=== PATIENT | female | born 1945 | race Two or more races ===

== ENCOUNTER 2016-12-29 15:32 | Inpatient (IN) | payer MEDICARE ==
[2016-12-29 17:08] LABS: Hematocrit 38 % (35-47); Hemoglobin 12.5 g/dl (12.0-16.0); Mean Corpuscular HGB Conc 33 g/dl (31-36); Mean Corpuscular Hemoglobin 27 pg (27-31); Mean Corpuscular Volume 80 fL (80-97); Mean Platelet Volume 10 um3 (7.4-10.4); Red Blood Count 4.72 10^6/ul (4.0-5.4); Red Cell Distribution Width 15 % (10.5-15); White Blood Count 9.4 10^3/ul (3.5-10.8)
[2016-12-29 17:24] LABS: Troponin I 0.01 ng/mL (<0.04)
[2016-12-29 17:25] LABS: Albumin 3.7 g/dL (3.2-5.2); BUN/Creatinine Ratio 16.5 (8-20); Calcium 9.2 mg/dL (8.6-10.3); EGFR African American 77.9 (>60); EGFR Non-African American 60.6 (>60); Globulin 3.3 g/dL (2-4); Magnesium 1.9 mg/dL (1.9-2.7); Potassium 4.2 mmol/L (3.5-5.0); Total Bilirubin 0.3 mg/dL (0.2-1.0)
--- NOTE | 2016-12-29 17:40 | RAD ---
INDICATION: Shortness of breath and chest pain COMPARISON: Chest x-ray dated November 25, 2014 TECHNIQUE: Single AP portable view of the chest was obtained. FINDINGS: Image quality is compromised due to the relative inferiority of a portable chest x-ray. The heart and mediastinum exhibit normal size and contour. Relative the prior chest x-ray there is mild engorgement of the pulmonary vasculature. The lungs are grossly clear. There is no evidence of a large pleural effusion. Visualized bones are normal for the patient's age. IMPRESSION: Mild engorgement of the pulmonary vasculature since the November 25, 2014 chest x-ray could be seen in the setting of mild congestive heart failure.
--- NOTE | 2016-12-29 17:58 | ED ---
Adelaide Strauss Alfonso, scribed for Tran Caballero MD on 12/29/16 at 1745 . Shortness of Breath - HPI Summary HPI Summary: This patient is a 71 year old F presenting [facility] accompanied by son with a chief complaint of SOB on exertion worse since 3 days ago. Pt states has chest discomfort with SOB and had to stop exercise. The patient reports no pain at present. Symptoms aggravated by ambulation and talking. Symptoms alleviated by rest. Patient reports dry oral mucosa, calf cramping (sharp pain which wakes her up from sleep), calf swelling, and palpitations. She occasionally takes a baby ASA, which she took last night. She was on flight home from [place] on . Pt went to PCP office who sent to ED for EKG changes and symptoms. pt has never had cardiac eval. Pt is on Metoprolol for HTN. - History of Current Complaint Chief Complaint: EDChestPainROMI Time Seen by Provider: 12/29/16 16:39 Hx Obtained From: Patient, Family/Social Media Project Manager - son Onset/Duration: Gradual Onset, Worse Since - 3 days, Other - Lasting 6 months Timing: Constant Aggrevating Factors: Other - ambulation and talking Alleviating Factors: Nothing Associated Signs & Symptoms: Chest Pain Unrelated to Cough, Calf Pain/Swelling - Allergy/Home Medications Allergies/Adverse Reactions: Allergies Allergy/AdvReac Type Severity Reaction Status Date / Time Penicillins [PCN] Allergy Unknown Verified 12/29/16 15:44 Reaction Details Home Medications: Home Medications Aspirin EC Low Dose* [Ecotrin EC Low Dose 81 MG*] 81 mg PO DAILY 12/29/16 [ History Confirmed 12/29/16] Atenolol & Chlorthalidone [Atenolol/Chlorthalidone 50-25 mg-] 1 tab PO DAILY 09/09 [History Confirmed 12/29/16] Famotidine TAB* [Pepcid 20 MG TAB*] 20 mg PO BID PRN 12/29/16 [History Confirmed 12/29/16] Naproxen Sodium [Naproxen Sodium 220 mg cap] 220 mg PO DAILY PRN 12/29/16 [ History Confirmed 12/29/16] PMH/Surg Hx/FS Hx/Imm Hx Previously Healthy: Yes Endocrine/Hematology History: Reports: Hx Anticoagulant Therapy - ASA Denies: Hx Diabetes Cardiovascular History: Reports: Hx Angina, Hx Hypercholesterolemia - DIET CONTROLLED, Hx Hypertension, Other Cardiovascular Problems/Disorders - spinal stenosis Respiratory History: Denies: Hx Asthma History: Reports: Other Problems/Disorders - problems /c constipation Musculoskeletal History: Reports: Hx Arthritis, Hx Back Problems, Other Musculoskeletal History - SPINAL STENOSIS Sensory History: Reports: Hx Cataracts - both eyes., Hx Vision Problem - Has " sx consult for overactive tear ducts" Denies: Hx Contacts or Glasses, Other Sensory Impairments Opthamlomology History: Reports: Hx Cataracts - both eyes., Hx Vision Problem - Has "sx consult for overactive tear ducts" Denies: Hx Contacts or Glasses, Other Sensory Impairments Psychiatric History: Denies: Other Psychiatric Issues/Disorders - Surgical History Surgery Procedure, Year, and Place: Tubal Ligation. Uterine Polyps removed 2012 Hx Anesthesia Reactions: No Infectious Disease History: No Infectious Disease History: Denies: Traveled Outside the [place] in Last 30 Days - Family History Known Family History: Positive: Cardiac Disease - angina father, bypass in brothers, Other - CVA - Social History Alcohol Use: None Substance Use Type: Reports: None Smoking Status (MU): Never Smoked Tobacco Review of Systems Constitutional: Negative Positive: Other - dry oral mucosa Positive: Palpitations, Chest Pain Positive: Shortness Of Breath Positive: Other - calf cramping (sharp pain which wakes her up from sleep), calf swelling All Other Systems Reviewed And Are Negative: Yes Physical Exam Triage Information Reviewed: Yes Vital Signs On Initial Exam: Initial Vitals Temp Pulse Resp BP Pulse Ox 98.6 F 46 16 185/56 100 12/29/16 15:39 12/29/16 15:39 12/29/16 15:39 12/29/16 15:39 12/29/16 15:39 Vital Signs Reviewed: Yes Appearance: Positive: Well-Appearing, No Pain Distress, Well-Nourished Skin: Positive: Warm, Skin Color Reflects Adequate Perfusion Head/Face: Positive: Normal Head/Face Inspection Eyes: Positive: Normal, EOMI, EVELYN ENT: Positive: Normal ENT inspection, Hearing grossly normal, Pharynx normal, TMs normal Neck: Positive: Supple, Nontender, No Lymphadenopathy Respiratory/Lung Sounds: Positive: Clear to Auscultation, Breath Sounds Present , Decreased Breath Sounds Cardiovascular: Positive: Normal, RRR Abdomen Description: Positive: Nontender, No Organomegaly, Soft Bowel Sounds: Positive: Present Musculoskeletal: Positive: Normal, Other - mild discomfort with palpation b/l twin Neurological: Positive: Normal, Sensory/Motor Intact - Richard Coma Scale Coma Scale Total: 15 Diagnostics - Vital Signs Vital Signs Temp Pulse Resp BP Pulse Ox 12/29/16 15:39 98.6 F 46 16 185/56 100 - Laboratory Lab Results: Lab Results 12/29/16 12/29/16 12/29/16 Range/Units 16:58 16:58 16:58 WBC 9.4 (3.5-10.8) 10^3/ul RBC 4.72 (4.0-5.4) 10^6/ul Hgb 12.5 (12.0-16.0) g/dl Hct 38 (35-47) % MCV 80 (80-97) fL MCH 27 (27-31) pg MCHC 33 (31-36) g/dl RDW 15 (10.5-15) % Plt Count 243 (150-450) 10^3/ul MPV 10 (7.4-10.4) um3 Neut % (Auto) 57.4 (38-83) % Lymph % (Auto) 28.6 (25-47) % [place] % (Auto) 8.3 (1-9) % Eos % (Auto) 4.5 (0-6) % Baso % (Auto) 1.2 (0-2) % Absolute Neuts (auto) 5.4 (1.5-7.7) 10^3/ul Absolute Lymphs (auto) 2.7 (1.0-4.8) 10^3/ul Absolute Monos (auto) 0.8 (0-0.8) 10^3/ul Absolute Eos (auto) 0.4 (0-0.6) 10^3/ul Absolute Basos (auto) 0.1 (0-0.2) 10^3/ul Absolute Nucleated RBC 0 10^3/ul Nucleated RBC % 0 D-Dimer, Quantitative 231 H (Less Than 230) ng/mL Sodium 135 (133-145) mmol/L Potassium 4.2 (3.5-5.0) mmol/L Chloride 101 (101-111) mmol/L Carbon Dioxide 30 (22-32) mmol/L Anion Gap 4 (2-11) mmol/L BUN 15 (6-24) mg/dL Creatinine 0.91 (0.51-0.95) mg/dL Est GFR ( Amer) 77.9 (>60) Est GFR (Non-Af Amer) 60.6 (>60) BUN/Creatinine Ratio 16.5 (8-20) Glucose 84 (70-100) mg/dL Calcium 9.2 (8.6-10.3) mg/dL Magnesium 1.9 (1.9-2.7) mg/dL Total Bilirubin 0.30 (0.2-1.0) mg/dL AST 18 (13-39) U/L ALT 13 (7-52) U/L Alkaline Phosphatase 69 (34-104) U/L Total Creatine Kinase 84 (10-223) U/L Troponin I 0.01 (<0.04) ng/mL B-Natriuretic Peptide ( - 100) pg/mL Total Protein 7.0 (6.4-8.9) g/dL Albumin 3.7 (3.2-5.2) g/dL Globulin 3.3 (2-4) g/dL Albumin/Globulin Ratio 1.1 (1-3) 12/29/16 Range/Units 16:58 WBC (3.5-10.8) 10^3/ul RBC (4.0-5.4) 10^6/ul Hgb (12.0-16.0) g/dl Hct (35-47) % MCV (80-97) fL MCH (27-31) pg MCHC (31-36) g/dl RDW (10.5-15) % Plt Count (150-450) 10^3/ul MPV (7.4-10.4) um3 Neut % (Auto) (38-83) % Lymph % (Auto) (25-47) % [place] % (Auto) (1-9) % Eos % (Auto) (0-6) % Baso % (Auto) (0-2) % Absolute Neuts (auto) (1.5-7.7) 10^3/ul Absolute Lymphs (auto) (1.0-4.8) 10^3/ul Absolute Monos (auto) (0-0.8) 10^3/ul Absolute Eos (auto) (0-0.6) 10^3/ul Absolute Basos (auto) (0-0.2) 10^3/ul Absolute Nucleated RBC 10^3/ul Nucleated RBC % D-Dimer, Quantitative (Less Than 230) ng/mL Sodium (133-145) mmol/L Potassium (3.5-5.0) mmol/L Chloride (101-111) mmol/L Carbon Dioxide (22-32) mmol/L Anion Gap (2-11) mmol/L BUN (6-24) mg/dL Creatinine (0.51-0.95) mg/dL Est GFR ( Amer) (>60) Est GFR (Non-Af Amer) (>60) BUN/Creatinine Ratio (8-20) Glucose (70-100) mg/dL Calcium (8.6-10.3) mg/dL Magnesium (1.9-2.7) mg/dL Total Bilirubin (0.2-1.0) mg/dL AST (13-39) U/L ALT (7-52) U/L Alkaline Phosphatase (34-104) U/L Total Creatine Kinase (10-223) U/L Troponin I (<0.04) ng/mL B-Natriuretic Peptide 205 H ( - 100) pg/mL Total Protein (6.4-8.9) g/dL Albumin (3.2-5.2) g/dL Globulin (2-4) g/dL Albumin/Globulin Ratio (1-3) Result Diagrams: 12/31/16 04:53 12/31/16 04:53 Lab Statement: Any lab studies that have been ordered have been reviewed, and results considered in the medical decision making process. - Radiology CXR Radiology Interpretation Completed By: Radiologist - Mild engorgement of the pulmonary vasculature since the November 25, 2014 chest x-ray could be seen in the setting of mild congestive heart failure. ED physician has reviewed this radiology report and agrees. - CT CTA Chest CT Interpretation Completed By: Radiologist - 1. No CT of evidence of pulmonary embolism. 2. Chronic and degenerative changes described in body the report. ED physician has reviewed this radiology report and agrees. - EKG 1550 Cardiac Rate: Bradycardia - BPM 45 EKG Rhythm: Sinus Bradycardia EKG Interpretation: Inverted T-waves in III Re-Evaluation - Re-Evaluation First Eval Comment: Reviewed with pt and son labs and imaging. Will admit for serial trop , tele. Spoke with Dr. Caballero - accepting pt Course/Dx - Course Assessment/Plan: Pt presents with exertional BANKS and CP. Pt with recent long travel and leg cramping. Will check labs, EKG, IVF. CTA. Pt noted to be bradycardic with HR 40 - not symptomatic. Anticipate will obv. pt in agreement with plan. Son at bedside - Diagnoses Provider Diagnoses: BANKS (dyspnea on exertion), Bradycardia - Physician Notifications Discussed Care of Patient With: Pavel Ramirez Time Discussed With Above Provider: 19:36 Instructed by Provider To: Other - Consulted Dr. Ramirez (hospitalist) who agrees to admit. Discharge - Discharge Plan Condition: Stable Disposition: ADMITTED TO [facility] The documentation as recorded by the Adelaide monsivais Alfonso accurately reflects the service I personally performed and the decisions made by Federico guerra Laura, MD.
[2016-12-29] MEDS ORDERED: NS 0.9% 1000 ML* 1,000 ML IV ONE (17:59)
[2016-12-29] MEDS ORDERED: Iohexol 350* (CONTRAST) 500 ML MDV IV ONE (18:06)
[2016-12-29 18:59] LABS: TSH (Thyroid Stimulating Horm) 2.75 mcIU/mL (0.34-5.60)
--- NOTE | 2016-12-29 19:15 | RAD ---
INDICATION: Bradycardia, elevated d-dimer and calf pain after a long flight. COMPARISON: Similar examination dated November 25, 2014 TECHNIQUE: Axial source images were acquired following the administration of 71 mL Omnipaque [address] angiographic technique. Coronal and sagittal reconstructed images were constructed and reviewed. FINDINGS: There there are no filling defects in the pulmonary arteries to indicate acute pulmonary embolic disease. At the right lower lobe (image 2454) there is a 3 mm pulmonary nodule that has not changed significantly since the prior CTA. Otherwise the lungs are clear. The heart is normal in size. There is no evidence of pericardial effusion. There is no evidence of aortic aneurysm or dissection. There is mild calcified atherosclerosis at the arch of the aorta and extending down the thoracic aorta into the visualized upper abdominal aorta. There is no mediastinal, hilar, or axillary lymphadenopathy. Multilevel degenerative changes of the thoracic spine includes loss of intervertebral disc height and marginal osteophyte formation. Limited views of the upper abdomen show no abnormalities. IMPRESSION: 1. No CT of evidence of pulmonary embolism. 2. Chronic and degenerative changes described in body the report.
[2016-12-29] MEDS ORDERED: CMCS: Melatonin (NF) 3 MG TAB PO PRN (20:14)
[2016-12-29] MEDS ORDERED: Ondansetron INJ* 2 MG/ML VIAL IV PRN (20:14)
[2016-12-29] MEDS ORDERED: traMADol TAB* 50 MG PO PRN (20:14)
--- NOTE | 2016-12-29 21:10 | HP ---
H&P (Free Text) History and Physical: PCP: Aristeo Dow MD Date/Time: 12/29/20161999 CC: chest pain HPI: Mrs Banuelos is a 71YO female HX HTN & HLD who presents from her PCP's office reporting sharp L parasternal chest pain radiating into her L arm associated with exertional SOB, light-headedness, and sweats, but no N/V, palpitations. She relates that her PCP was concerned over a new murmur and ECG changes. She returned late October from a 2 month trip to [facility], but denies sick contacts, cough, F/C, & congestion. Mrs Banuelos is also concerned regarding her low heart rate which has been stable and asymptomatic in the ED in the 40-50s. She is on atenolol/HCTZ 50/25mg PO QAM. PMedHx HTN HLD Ambulatory Orders Aspirin EC Low Dose* [Ecotrin EC Low Dose 81 MG*] 81 mg PO DAILY 12/29/16 Atenolol & Chlorthalidone [Atenolol/Chlorthalidone 50-25 mg-] 1 tab PO DAILY 09/09 Famotidine TAB* [Pepcid 20 MG TAB*] 20 mg PO BID PRN 12/29/16 Naproxen Sodium [Naproxen Sodium 220 mg cap] 220 mg PO DAILY PRN 12/29/16 Allergies Penicillins [PCN] Allergy (Verified 12/29/16 15:44) Unknown Reaction Details PSurgHx tubal ligation uterine polypectomy SocHx: no tobacco, alcohol, or recreational drug HX; , lives alone with her son nearby who visits daily; full code status FamHx: Father: in his 70s 2nd CAD onset in his 30-40s; Brother x2: CAD/ CABG; Brother x1: CVA ROS: as above, otherwise reviewed and all were negative vitals: Vital Signs Temp 37.0 C 12/29/16 15:39 Pulse 51 12/29/16 21:00 Resp 19 12/29/16 21:00 BP 113/43 12/29/16 18:00 Pulse Ox 99 12/29/16 21:00 Intake & Output 12/28/16 12/29/16 12/29/16 23:59 11:59 23:59 Weight 81.193 kg Constitutional: NAD, normally developed, obese [place] female HEENM: atraumatic; sclera/conjunctiva: anicteric/clear; hearing: clinically intact; oropharynx: clear, mucosa moist Neck: soft tissue: non-tender; thyroid: normal Pulmonary: clear to auscultation bilaterally, good aeration, no accessory muscle use CV: RR/RR, normal S1S2, no carotid bruit, no jugular venous distention, 2+ B DP/ PT, no edema Abdominal: soft, non-distended, non-tender, no rebound/guarding/rigidity, normoactive bowel sounds, no hepatosplenomegaly or masses, no costovertebral angle tenderness Musculoskeletal: general: grossly intact, no calf tenderness, negative Andrew's Integumental: normal appearance and texture of exposed skin Psychiatric orientation: AA&O to PPS affect: calm mood: cooperative eye contact: good content: reliable responses: timely insight: good Testing: Lab Results 12/29/16 12/29/16 12/29/16 Range/Units 16:58 16:58 16:58 WBC 9.4 (3.5-10.8) 10^3/ul RBC 4.72 (4.0-5.4) 10^6/ul Hgb 12.5 (12.0-16.0) g/dl Hct 38 (35-47) % MCV 80 (80-97) fL MCH 27 (27-31) pg MCHC 33 (31-36) g/dl RDW 15 (10.5-15) % Plt Count 243 (150-450) 10^3/ul MPV 10 (7.4-10.4) um3 Neut % (Auto) 57.4 (38-83) % Lymph % (Auto) 28.6 (25-47) % [place] % (Auto) 8.3 (1-9) % Eos % (Auto) 4.5 (0-6) % Baso % (Auto) 1.2 (0-2) % Absolute Neuts (auto) 5.4 (1.5-7.7) 10^3/ul Absolute Lymphs (auto) 2.7 (1.0-4.8) 10^3/ul Absolute Monos (auto) 0.8 (0-0.8) 10^3/ul Absolute Eos (auto) 0.4 (0-0.6) 10^3/ul Absolute Basos (auto) 0.1 (0-0.2) 10^3/ul Absolute Nucleated RBC 0 10^3/ul Nucleated RBC % 0 D-Dimer, Quantitative 231 H (Less Than 230) ng/mL Sodium 135 (133-145) mmol/L Potassium 4.2 (3.5-5.0) mmol/L Chloride 101 (101-111) mmol/L Carbon Dioxide 30 (22-32) mmol/L Anion Gap 4 (2-11) mmol/L BUN 15 (6-24) mg/dL Creatinine 0.91 (0.51-0.95) mg/dL Est GFR ( Amer) 77.9 (>60) Est GFR (Non-Af Amer) 60.6 (>60) BUN/Creatinine Ratio 16.5 (8-20) Glucose 84 (70-100) mg/dL Calcium 9.2 (8.6-10.3) mg/dL Magnesium 1.9 (1.9-2.7) mg/dL Total Bilirubin 0.30 (0.2-1.0) mg/dL AST 18 (13-39) U/L ALT 13 (7-52) U/L Alkaline Phosphatase 69 (34-104) U/L Total Creatine Kinase 84 (10-223) U/L Troponin I 0.01 (<0.04) ng/mL B-Natriuretic Peptide ( - 100) pg/mL Total Protein 7.0 (6.4-8.9) g/dL Albumin 3.7 (3.2-5.2) g/dL Globulin 3.3 (2-4) g/dL Albumin/Globulin Ratio 1.1 (1-3) TSH 2.75 (0.34-5.60) mcIU/mL 12/29/16 12/29/16 Range/Units 16:58 20:35 WBC (3.5-10.8) 10^3/ul RBC (4.0-5.4) 10^6/ul Hgb (12.0-16.0) g/dl Hct (35-47) % MCV (80-97) fL MCH (27-31) pg MCHC (31-36) g/dl RDW (10.5-15) % Plt Count (150-450) 10^3/ul MPV (7.4-10.4) um3 Neut % (Auto) (38-83) % Lymph % (Auto) (25-47) % [place] % (Auto) (1-9) % Eos % (Auto) (0-6) % Baso % (Auto) (0-2) % Absolute Neuts (auto) (1.5-7.7) 10^3/ul Absolute Lymphs (auto) (1.0-4.8) 10^3/ul Absolute Monos (auto) (0-0.8) 10^3/ul Absolute Eos (auto) (0-0.6) 10^3/ul Absolute Basos (auto) (0-0.2) 10^3/ul Absolute Nucleated RBC 10^3/ul Nucleated RBC % D-Dimer, Quantitative (Less Than 230) ng/mL Sodium (133-145) mmol/L Potassium (3.5-5.0) mmol/L Chloride (101-111) mmol/L Carbon Dioxide (22-32) mmol/L Anion Gap (2-11) mmol/L BUN (6-24) mg/dL Creatinine (0.51-0.95) mg/dL Est GFR ( Amer) (>60) Est GFR (Non-Af Amer) (>60) BUN/Creatinine Ratio (8-20) Glucose (70-100) mg/dL Calcium (8.6-10.3) mg/dL Magnesium (1.9-2.7) mg/dL Total Bilirubin (0.2-1.0) mg/dL AST (13-39) U/L ALT (7-52) U/L Alkaline Phosphatase (34-104) U/L Total Creatine Kinase (10-223) U/L Troponin I 0.01 (<0.04) ng/mL B-Natriuretic Peptide 205 H ( - 100) pg/mL Total Protein (6.4-8.9) g/dL Albumin (3.2-5.2) g/dL Globulin (2-4) g/dL Albumin/Globulin Ratio (1-3) TSH (0.34-5.60) mcIU/mL ECG, personally reviewed: sinus bradycardia rate 45, no ischemia; morphologically similar to comparison 11/25/2014 CXR, personally reviewed: IMPRESSION: Mild engorgement of the pulmonary vasculature since the November 25, 2014 chest x-ray could be seen in the setting of mild congestive heart failure. CTA chest, personally reviewed: IMPRESSION: 1. No CT of evidence of pulmonary embolism. 2. Chronic and degenerative changes described in body the report. Impression: 71F presenting with chest pain for r/o ACS DIAGNOSIS & PLAN Primary chest pain r/o ACS : telemetry : trend troponin : recheck ECG in AM : consider cardiology consult in AM pending above : given report of new murmure, recommend outpatient ECHO if above negative : supplemental oxygen : supportive care sinus bradycardia in setting of beta-yovany : hold atenolol/HCTZ : monitor, consider restarting at lower dose in AM, if appropriate Secondary HLD : heart healthy diet : check lipids in AM Admission Rational: CDU observation for r/o ACS DVTp: heparin SQ Code Status: full HCP: son
[2016-12-29] MEDS: Docusate CAP* 100 MG PO SCH (22:33)
[2016-12-30] MEDS: NS 0.9% 1000 ML* 1,000 ML IV SCH ×2 (02:59→17:47)
[2016-12-30] MEDS: Heparin VIAL(*) 5000 UNITS/ML VIAL (FIVE THOUSAND) SUBCUT SCH ×3 (05:26→22:00)
[2016-12-30] MEDS: Omeprazole CAP* 20 MG PO SCH (05:27)
[2016-12-30] MEDS: Aspirin EC Low Dose* 81 MG TAB.EC PO SCH (08:38)
[2016-12-30] MEDS: Docusate CAP* 100 MG PO SCH ×2 (08:39→22:00)
[2016-12-30] MEDS ORDERED: Aspirin EC Low Dose* 81 MG TAB.EC PO SCH (09:00)
--- NOTE | 2016-12-30 11:20 | RAD ---
HISTORY: Swelling and pain, redness left calf COMPARISONS: November 25, 2014 TECHNIQUE: Multiple transverse and longitudinal ultrasound images were obtained of the left lower extremity from the level of the common femoral vein inferiorly through to the infrapopliteal veins using grayscale, color Doppler, and spectral Doppler imaging with and without compression and with augmentation. Comparison images were obtained of the contralateral common femoral vein. FINDINGS: VEINS: The venous system of the left lower extremity is compressible throughout its course, with normal flow on color Doppler imaging and normal response to augmentation on spectral Doppler imaging. SOFT TISSUES: Unremarkable. OTHER FINDINGS: None. IMPRESSION: NO LEFT LOWER EXTREMITY DEEP VEIN THROMBOSIS
[2016-12-30 11:49] LABS: HDL Cholesterol 32.6 mg/dL
--- NOTE | 2016-12-30 13:23 | PN ---
Subjective Date of Service: 12/30/16 Interval History: Patient has no continuing chest pain overnight. Patient denies any other complaints including SOB, lightheadedness, N/V, F/C, diarrhea, constipation, dysuria, changes in urine, or other pains. In discussion with the patient, patient states that she has been having increased swelling in her legs, usually in the left more than her right. Patient states that she also has been having to incline the head of her bed due to SOB. Patient also states that her primary care provider was concerned due to a new onset of murmur. Family History: Unchanged from Admission Social History: Unchanged from Admission Past Medical History: Unchanged from Admission Objective Active Medications: Acetaminophen (Tylenol Tab*) 650 mg PO Q6H PRN PRN Reason: FEVER/PAIN Aspirin (Aspirin Ec Low Dose*) 81 mg PO DAILY [facility] Last Admin: 12/30/16 08:38 Dose: 81 mg Docusate Sodium (Colace Cap*) 200 mg PO BID [facility] Last Admin: 12/30/16 08:39 Dose: 200 mg Heparin Sodium (Porcine) (Heparin Vial(*)) 5,000 units SUBCUT Q8HR [facility] Last Admin: 12/30/16 05:26 Dose: 5,000 units Sodium Chloride (Ns 0.9% 1000 Ml*) 1,000 mls @ 75 mls/hr IV PER RATE [facility] Last Admin: 12/30/16 02:59 Dose: 75 mls/hr Melatonin (Melatonin (Nf)) 3 mg PO BEDTIME PRN; Protocol PRN Reason: Sleep Omeprazole (Prilosec Cap*) 20 mg PO DAILY@0600 [facility] Last Admin: 12/30/16 05:27 Dose: 20 mg Ondansetron HCl (Zofran Inj*) 4 mg IV Q6H PRN PRN Reason: NAUSEA Tramadol HCl (Ultram*) 50 mg PO Q6H PRN PRN Reason: PAIN Vital Signs 12/29/16 12/29/16 12/29/16 21:00 21:10 21:30 Temperature 98.2 F Pulse Rate 51 50 Respiratory 19 18 18 Rate Blood Pressure 119/49 (mmHg) O2 Sat by Pulse 99 97 Oximetry 12/30/16 12/30/16 12/30/16 00:36 03:38 07:35 Temperature 98.2 F 98.3 F 99.0 F Pulse Rate 52 55 54 Respiratory 16 18 16 Rate Blood Pressure 132/49 145/50 134/61 (mmHg) O2 Sat by Pulse 97 98 97 Oximetry Oxygen Devices in Use Now: None Appearance: Patient is a 71yo female who appears stated age and is sitting in the bed in NAD. Eyes: No Scleral Icterus, PERRLA Ears/Nose/Mouth/Throat: NL Teeth, Lips, Gums, Clear Oropharnyx, Mucous Membranes Moist Neck: NL Appearance and Movements; NL JVP, Trachea Midline Respiratory: Symmetrical Chest Expansion and Respiratory Effort, Clear to Auscultation Cardiovascular: RRR - Grade 2/6 systolic ejection murmur heard best at the RUSB in the 2nd intercostal space. 1+ edema in legs bilaterally, left slightly greater than the right., - Abdominal: No Hepatosplenomegaly, - - Normal sounds, no distension, slight tenderness to palpation in RLQ, patient states she has a hernia in that area which is being watched. Lymphatic: No Cervical Adenopathy Skin: No Rash or Ulcers, No Nodules or Sclerosis Neurological: Alert and Oriented x 3 Result Diagrams: 12/29/16 16:58 12/29/16 16:58 Additional Lab and Data: Lab Results 12/29/16 12/29/16 12/29/16 Range/Units 16:58 16:58 16:58 WBC 9.4 (3.5-10.8) 10^3/ul RBC 4.72 (4.0-5.4) 10^6/ul Hgb 12.5 (12.0-16.0) g/dl Hct 38 (35-47) % MCV 80 (80-97) fL MCH 27 (27-31) pg MCHC 33 (31-36) g/dl RDW 15 (10.5-15) % Plt Count 243 (150-450) 10^3/ul MPV 10 (7.4-10.4) um3 Neut % (Auto) 57.4 (38-83) % Lymph % (Auto) 28.6 (25-47) % [place] % (Auto) 8.3 (1-9) % Eos % (Auto) 4.5 (0-6) % Baso % (Auto) 1.2 (0-2) % Absolute Neuts (auto) 5.4 (1.5-7.7) 10^3/ul Absolute Lymphs (auto) 2.7 (1.0-4.8) 10^3/ul Absolute Monos (auto) 0.8 (0-0.8) 10^3/ul Absolute Eos (auto) 0.4 (0-0.6) 10^3/ul Absolute Basos (auto) 0.1 (0-0.2) 10^3/ul Absolute Nucleated RBC 0 10^3/ul Nucleated RBC % 0 D-Dimer, Quantitative 231 H (Less Than 230) ng/mL Sodium 135 (133-145) mmol/L Potassium 4.2 (3.5-5.0) mmol/L Chloride 101 (101-111) mmol/L Carbon Dioxide 30 (22-32) mmol/L Anion Gap 4 (2-11) mmol/L BUN 15 (6-24) mg/dL Creatinine 0.91 (0.51-0.95) mg/dL Est GFR ( Amer) 77.9 (>60) Est GFR (Non-Af Amer) 60.6 (>60) BUN/Creatinine Ratio 16.5 (8-20) Glucose 84 (70-100) mg/dL Calcium 9.2 (8.6-10.3) mg/dL Magnesium 1.9 (1.9-2.7) mg/dL Total Bilirubin 0.30 (0.2-1.0) mg/dL AST 18 (13-39) U/L ALT 13 (7-52) U/L Alkaline Phosphatase 69 (34-104) U/L Total Creatine Kinase 84 (10-223) U/L Troponin I 0.01 (<0.04) ng/mL B-Natriuretic Peptide ( - 100) pg/mL Total Protein 7.0 (6.4-8.9) g/dL Albumin 3.7 (3.2-5.2) g/dL Globulin 3.3 (2-4) g/dL Albumin/Globulin Ratio 1.1 (1-3) 12/29/16 Range/Units 16:58 WBC (3.5-10.8) 10^3/ul RBC (4.0-5.4) 10^6/ul Hgb (12.0-16.0) g/dl Hct (35-47) % MCV (80-97) fL MCH (27-31) pg MCHC (31-36) g/dl RDW (10.5-15) % Plt Count (150-450) 10^3/ul MPV (7.4-10.4) um3 Neut % (Auto) (38-83) % Lymph % (Auto) (25-47) % [place] % (Auto) (1-9) % Eos % (Auto) (0-6) % Baso % (Auto) (0-2) % Absolute Neuts (auto) (1.5-7.7) 10^3/ul Absolute Lymphs (auto) (1.0-4.8) 10^3/ul Absolute Monos (auto) (0-0.8) 10^3/ul Absolute Eos (auto) (0-0.6) 10^3/ul Absolute Basos (auto) (0-0.2) 10^3/ul Absolute Nucleated RBC 10^3/ul Nucleated RBC % D-Dimer, Quantitative (Less Than 230) ng/mL Sodium (133-145) mmol/L Potassium (3.5-5.0) mmol/L Chloride (101-111) mmol/L Carbon Dioxide (22-32) mmol/L Anion Gap (2-11) mmol/L BUN (6-24) mg/dL Creatinine (0.51-0.95) mg/dL Est GFR ( Amer) (>60) Est GFR (Non-Af Amer) (>60) BUN/Creatinine Ratio (8-20) Glucose (70-100) mg/dL Calcium (8.6-10.3) mg/dL Magnesium (1.9-2.7) mg/dL Total Bilirubin (0.2-1.0) mg/dL AST (13-39) U/L ALT (7-52) U/L Alkaline Phosphatase (34-104) U/L Total Creatine Kinase (10-223) U/L Troponin I (<0.04) ng/mL B-Natriuretic Peptide 205 H ( - 100) pg/mL Total Protein (6.4-8.9) g/dL Albumin (3.2-5.2) g/dL Globulin (2-4) g/dL Albumin/Globulin Ratio (1-3) 12/29/16 12/29/16 12/29/16 16:58 16:58 16:58 WBC 9.4 RBC 4.72 Hgb 12.5 Hct 38 MCV 80 MCH 27 MCHC 33 RDW 15 Plt Count 243 MPV 10 Neut % (Auto) 57.4 Lymph % (Auto) 28.6 [place] % (Auto) 8.3 Eos % (Auto) 4.5 Baso % (Auto) 1.2 Absolute Neuts (auto) 5.4 Absolute Lymphs (auto) 2.7 Absolute Monos (auto) 0.8 Absolute Eos (auto) 0.4 Absolute Basos (auto) 0.1 Absolute Nucleated RBC 0 Nucleated RBC % 0 D-Dimer, Quantitative 231 H Sodium 135 Potassium 4.2 Chloride 101 Carbon Dioxide 30 Anion Gap 4 BUN 15 Creatinine 0.91 Est GFR ( Amer) 77.9 Est GFR (Non-Af Amer) 60.6 BUN/Creatinine Ratio 16.5 Glucose 84 Calcium 9.2 Magnesium 1.9 Total Bilirubin 0.30 AST 18 ALT 13 Alkaline Phosphatase 69 Total Creatine Kinase 84 Troponin I 0.01 B-Natriuretic Peptide Total Protein 7.0 Albumin 3.7 Globulin 3.3 Albumin/Globulin Ratio 1.1 Triglycerides Cholesterol LDL Cholesterol HDL Cholesterol TSH 2.75 12/29/16 12/29/16 12/30/16 16:58 20:35 00:46 WBC RBC Hgb Hct MCV MCH MCHC RDW Plt Count MPV Neut % (Auto) Lymph % (Auto) [place] % (Auto) Eos % (Auto) Baso % (Auto) Absolute Neuts (auto) Absolute Lymphs (auto) Absolute Monos (auto) Absolute Eos (auto) Absolute Basos (auto) Absolute Nucleated RBC Nucleated RBC % D-Dimer, Quantitative Sodium Potassium Chloride Carbon Dioxide Anion Gap BUN Creatinine Est GFR ( Amer) Est GFR (Non-Af Amer) BUN/Creatinine Ratio Glucose Calcium Magnesium Total Bilirubin AST ALT Alkaline Phosphatase Total Creatine Kinase Troponin I 0.01 0.01 B-Natriuretic Peptide 205 H Total Protein Albumin Globulin Albumin/Globulin Ratio Triglycerides Cholesterol LDL Cholesterol HDL Cholesterol TSH 12/30/16 11:18 WBC RBC Hgb Hct MCV MCH MCHC RDW Plt Count MPV Neut % (Auto) Lymph % (Auto) [place] % (Auto) Eos % (Auto) Baso % (Auto) Absolute Neuts (auto) Absolute Lymphs (auto) Absolute Monos (auto) Absolute Eos (auto) Absolute Basos (auto) Absolute Nucleated RBC Nucleated RBC % D-Dimer, Quantitative Sodium Potassium Chloride Carbon Dioxide Anion Gap BUN Creatinine Est GFR ( Amer) Est GFR (Non-Af Amer) BUN/Creatinine Ratio Glucose Calcium Magnesium Total Bilirubin AST ALT Alkaline Phosphatase Total Creatine Kinase Troponin I B-Natriuretic Peptide Total Protein Albumin Globulin Albumin/Globulin Ratio Triglycerides 176 Cholesterol 167 LDL Cholesterol 99 HDL Cholesterol 32.6 TSH Assess/Plan/Problems-Billing Assessment: Patient is a 71yo female with a PMH significant for HLD and HTN who presents with 4 days of chest pain multiple times a day and exacerbated by activity as well as 6 months of increasing BANKS, edema, and orthopnea, who is now chest pain free. - Patient Problems (1) Angina pectoris Current Visit: No Status: Acute Code(s): I20.9 - ANGINA PECTORIS, UNSPECIFIED SNOMED Code(s): 544582867 Comment: Patient has had 4 days of chest pain starting in her chest and radiating into her left arm multiple times a day that is worse with exertion. Patient has a ASAD score of 4 representing a 20% chance of [place] in 14 days. Will be kept over the weekend for a stress test on Sunday. Patient had another episode of CP radiating to her arm at approximately 1400 on 12/30. EKG ordered which was normal, will order troponin x3. Self resolved before nitro could be given. (2) Dyspnea on exertion Current Visit: Yes Status: Acute Code(s): R06.09 - OTHER FORMS OF DYSPNEA SNOMED Code(s): 15201822 Comment: Patient has symptomatology and chest XR consistent with CHF. Patient also has new onset murmur 2/6 consistent with aortic stenosis. Will be better clarified on Sunday with stress test and treatment will be optimized based on results. (3) HLD (hyperlipidemia) Current Visit: No Status: Chronic Code(s): E78.5 - HYPERLIPIDEMIA, UNSPECIFIED SNOMED Code(s): 53478420 Comment: Lipid panel shows LDL of 99 and HDL of 32 with a total of 176. Would not benefit from statin therapy without documented CAD. (4) HTN (hypertension) Current Visit: No Status: Chronic Code(s): I10 - ESSENTIAL (PRIMARY) HYPERTENSION SNOMED Code(s): 86585057 Comment: Holding home Atenolol for bradycardia. Patient's BP controlled in the hospital on no medications. Will resume atenolol at lower dose of HR will allow. Will begin ACEI if patient is found to have CHF or needs additional BP control. Stop Chlorthalidone for now. (5) DVT prophylaxis Current Visit: No Status: Acute Code(s): SEU7710 - SNOMED Code(s): 789102035 Comment: SQ Heparin Status and Disposition: Patient is admitted pending a Stress Test on Sunday due to high ASAD score. Will discharge to home if no further need for intervention at that time.
[2016-12-30] MEDS ORDERED: Nitroglycerin TAB 0.3 MG* 0.3 MG TAB SL PRN (13:42)
[2016-12-30] MEDS: Acetaminophen TAB* 325 MG PO PRN (13:44)
[2016-12-31 05:02] LABS: Hematocrit 35 % (35-47); Hemoglobin 11.6 g/dl (12.0-16.0); Mean Corpuscular HGB Conc 33 g/dl (31-36); Mean Corpuscular Hemoglobin 27 pg (27-31); Mean Corpuscular Volume 79 fL (80-97); Mean Platelet Volume 9 um3 (7.4-10.4); Red Blood Count 4.38 10^6/ul (4.0-5.4); Red Cell Distribution Width 15 % (10.5-15); White Blood Count 8.8 10^3/ul (3.5-10.8)
[2016-12-31 05:21] LABS: BUN/Creatinine Ratio 18.8 (8-20); Calcium 8.4 mg/dL (8.6-10.3); EGFR African American 84.3 (>60); EGFR Non-African American 65.6 (>60); Potassium 3.7 mmol/L (3.5-5.0)
[2016-12-31] MEDS: Heparin VIAL(*) 5000 UNITS/ML VIAL (FIVE THOUSAND) SUBCUT SCH ×3 (06:06→21:10)
[2016-12-31] MEDS: Omeprazole CAP* 20 MG PO SCH (06:06)
[2016-12-31] MEDS: Aspirin EC Low Dose* 81 MG TAB.EC PO SCH (09:00)
[2016-12-31] MEDS: Docusate CAP* 100 MG PO SCH ×2 (09:01→21:10)
--- NOTE | 2016-12-31 16:31 | PN ---
Subjective Date of Service: 12/31/16 Interval History: Patient has no new complaints overnight. No recurrence of chest pain. Patient states she slept very well. Patient requesting handicapped parking pass so she doesn't have to walk to far at the gym. Family History: Unchanged from Admission Social History: Unchanged from Admission Past Medical History: Unchanged from Admission Objective Active Medications: Acetaminophen (Tylenol Tab*) 650 mg PO Q6H PRN PRN Reason: FEVER/PAIN Last Admin: 12/30/16 13:44 Dose: 650 mg Aspirin (Aspirin Ec Low Dose*) 81 mg PO DAILY [facility] Last Admin: 12/31/16 09:00 Dose: 81 mg Docusate Sodium (Colace Cap*) 200 mg PO BID [facility] Last Admin: 12/31/16 09:01 Dose: 200 mg Heparin Sodium (Porcine) (Heparin Vial(*)) 5,000 units SUBCUT Q8HR [facility] Last Admin: 12/31/16 14:37 Dose: 5,000 units Melatonin (Melatonin (Nf)) 3 mg PO BEDTIME PRN; Protocol PRN Reason: Sleep Nitroglycerin (Nitroglycerin Tab 0.3 Mg*) 0.3 mg SL .Q5MIN PRN PRN Reason: ANGINA Omeprazole (Prilosec Cap*) 20 mg PO DAILY@0600 [facility] Last Admin: 12/31/16 06:06 Dose: 20 mg Ondansetron HCl (Zofran Inj*) 4 mg IV Q6H PRN PRN Reason: NAUSEA Tramadol HCl (Ultram*) 50 mg PO Q6H PRN PRN Reason: PAIN Vital Signs 12/30/16 12/30/16 12/30/16 17:44 19:49 20:00 Temperature 97.2 F 97.4 F Pulse Rate 65 57 Respiratory 16 14 18 Rate Blood Pressure 156/59 142/55 (mmHg) O2 Sat by Pulse 98 98 Oximetry 12/30/16 12/31/16 12/31/16 23:52 03:16 07:53 Temperature 98.3 F 97.6 F 97.7 F Pulse Rate 56 63 58 Respiratory 20 18 16 Rate Blood Pressure 126/39 152/55 151/83 (mmHg) O2 Sat by Pulse 95 97 98 Oximetry 12/31/16 12/31/16 12/31/16 11:15 12:47 15:37 Temperature 97.9 F 98.3 F Pulse Rate 62 66 Respiratory 20 16 Rate Blood Pressure 107/44 150/51 (mmHg) O2 Sat by Pulse 98 97 Oximetry Oxygen Devices in Use Now: None Appearance: Patient is a 71yo female who appears stated age and is sitting in the bed in NAD. Eyes: No Scleral Icterus, PERRLA Ears/Nose/Mouth/Throat: NL Teeth, Lips, Gums, Clear Oropharnyx, Mucous Membranes Moist Neck: NL Appearance and Movements; NL JVP, Trachea Midline Respiratory: Symmetrical Chest Expansion and Respiratory Effort, Clear to Auscultation Cardiovascular: RRR, - - Grade 2/6 murmur heard best at RUSB. Pulses 2+ B/L in Radial, PT, DP. Abdominal: NL Sounds; No Tenderness; No Distention, No Hepatosplenomegaly Skin: No Rash or Ulcers, No Nodules or Sclerosis Neurological: Alert and Oriented x 3, NL Gait Result Diagrams: 12/31/16 04:53 12/31/16 04:53 Additional Lab and Data: Lab Results 12/29/16 12/29/16 12/29/16 Range/Units 16:58 16:58 16:58 WBC 9.4 (3.5-10.8) 10^3/ul RBC 4.72 (4.0-5.4) 10^6/ul Hgb 12.5 (12.0-16.0) g/dl Hct 38 (35-47) % MCV 80 (80-97) fL MCH 27 (27-31) pg MCHC 33 (31-36) g/dl RDW 15 (10.5-15) % Plt Count 243 (150-450) 10^3/ul MPV 10 (7.4-10.4) um3 Neut % (Auto) 57.4 (38-83) % Lymph % (Auto) 28.6 (25-47) % [place] % (Auto) 8.3 (1-9) % Eos % (Auto) 4.5 (0-6) % Baso % (Auto) 1.2 (0-2) % Absolute Neuts (auto) 5.4 (1.5-7.7) 10^3/ul Absolute Lymphs (auto) 2.7 (1.0-4.8) 10^3/ul Absolute Monos (auto) 0.8 (0-0.8) 10^3/ul Absolute Eos (auto) 0.4 (0-0.6) 10^3/ul Absolute Basos (auto) 0.1 (0-0.2) 10^3/ul Absolute Nucleated RBC 0 10^3/ul Nucleated RBC % 0 D-Dimer, Quantitative 231 H (Less Than 230) ng/mL Sodium 135 (133-145) mmol/L Potassium 4.2 (3.5-5.0) mmol/L Chloride 101 (101-111) mmol/L Carbon Dioxide 30 (22-32) mmol/L Anion Gap 4 (2-11) mmol/L BUN 15 (6-24) mg/dL Creatinine 0.91 (0.51-0.95) mg/dL Est GFR ( Amer) 77.9 (>60) Est GFR (Non-Af Amer) 60.6 (>60) BUN/Creatinine Ratio 16.5 (8-20) Glucose 84 (70-100) mg/dL Calcium 9.2 (8.6-10.3) mg/dL Magnesium 1.9 (1.9-2.7) mg/dL Total Bilirubin 0.30 (0.2-1.0) mg/dL AST 18 (13-39) U/L ALT 13 (7-52) U/L Alkaline Phosphatase 69 (34-104) U/L Total Creatine Kinase 84 (10-223) U/L Troponin I 0.01 (<0.04) ng/mL B-Natriuretic Peptide ( - 100) pg/mL Total Protein 7.0 (6.4-8.9) g/dL Albumin 3.7 (3.2-5.2) g/dL Globulin 3.3 (2-4) g/dL Albumin/Globulin Ratio 1.1 (1-3) 12/29/16 Range/Units 16:58 WBC (3.5-10.8) 10^3/ul RBC (4.0-5.4) 10^6/ul Hgb (12.0-16.0) g/dl Hct (35-47) % MCV (80-97) fL MCH (27-31) pg MCHC (31-36) g/dl RDW (10.5-15) % Plt Count (150-450) 10^3/ul MPV (7.4-10.4) um3 Neut % (Auto) (38-83) % Lymph % (Auto) (25-47) % [place] % (Auto) (1-9) % Eos % (Auto) (0-6) % Baso % (Auto) (0-2) % Absolute Neuts (auto) (1.5-7.7) 10^3/ul Absolute Lymphs (auto) (1.0-4.8) 10^3/ul Absolute Monos (auto) (0-0.8) 10^3/ul Absolute Eos (auto) (0-0.6) 10^3/ul Absolute Basos (auto) (0-0.2) 10^3/ul Absolute Nucleated RBC 10^3/ul Nucleated RBC % D-Dimer, Quantitative (Less Than 230) ng/mL Sodium (133-145) mmol/L Potassium (3.5-5.0) mmol/L Chloride (101-111) mmol/L Carbon Dioxide (22-32) mmol/L Anion Gap (2-11) mmol/L BUN (6-24) mg/dL Creatinine (0.51-0.95) mg/dL Est GFR ( Amer) (>60) Est GFR (Non-Af Amer) (>60) BUN/Creatinine Ratio (8-20) Glucose (70-100) mg/dL Calcium (8.6-10.3) mg/dL Magnesium (1.9-2.7) mg/dL Total Bilirubin (0.2-1.0) mg/dL AST (13-39) U/L ALT (7-52) U/L Alkaline Phosphatase (34-104) U/L Total Creatine Kinase (10-223) U/L Troponin I (<0.04) ng/mL B-Natriuretic Peptide 205 H ( - 100) pg/mL Total Protein (6.4-8.9) g/dL Albumin (3.2-5.2) g/dL Globulin (2-4) g/dL Albumin/Globulin Ratio (1-3) 12/29/16 12/29/16 12/29/16 16:58 16:58 16:58 WBC 9.4 RBC 4.72 Hgb 12.5 Hct 38 MCV 80 MCH 27 MCHC 33 RDW 15 Plt Count 243 MPV 10 Neut % (Auto) 57.4 Lymph % (Auto) 28.6 [place] % (Auto) 8.3 Eos % (Auto) 4.5 Baso % (Auto) 1.2 Absolute Neuts (auto) 5.4 Absolute Lymphs (auto) 2.7 Absolute Monos (auto) 0.8 Absolute Eos (auto) 0.4 Absolute Basos (auto) 0.1 Absolute Nucleated RBC 0 Nucleated RBC % 0 D-Dimer, Quantitative 231 H Sodium 135 Potassium 4.2 Chloride 101 Carbon Dioxide 30 Anion Gap 4 BUN 15 Creatinine 0.91 Est GFR ( Amer) 77.9 Est GFR (Non-Af Amer) 60.6 BUN/Creatinine Ratio 16.5 Glucose 84 Calcium 9.2 Magnesium 1.9 Total Bilirubin 0.30 AST 18 ALT 13 Alkaline Phosphatase 69 Total Creatine Kinase 84 Troponin I 0.01 B-Natriuretic Peptide Total Protein 7.0 Albumin 3.7 Globulin 3.3 Albumin/Globulin Ratio 1.1 Triglycerides Cholesterol LDL Cholesterol HDL Cholesterol TSH 2.75 12/29/16 12/29/16 12/30/16 16:58 20:35 00:46 WBC RBC Hgb Hct MCV MCH MCHC RDW Plt Count MPV Neut % (Auto) Lymph % (Auto) [place] % (Auto) Eos % (Auto) Baso % (Auto) Absolute Neuts (auto) Absolute Lymphs (auto) Absolute Monos (auto) Absolute Eos (auto) Absolute Basos (auto) Absolute Nucleated RBC Nucleated RBC % D-Dimer, Quantitative Sodium Potassium Chloride Carbon Dioxide Anion Gap BUN Creatinine Est GFR ( Amer) Est GFR (Non- Amer) BUN/Creatinine Ratio Glucose Calcium Magnesium Total Bilirubin AST ALT Alkaline Phosphatase Total Creatine Kinase Troponin I 0.01 0.01 B-Natriuretic Peptide 205 H Total Protein Albumin Globulin Albumin/Globulin Ratio Triglycerides Cholesterol LDL Cholesterol HDL Cholesterol TSH 12/30/16 11:18 WBC RBC Hgb Hct MCV MCH MCHC RDW Plt Count MPV Neut % (Auto) Lymph % (Auto) [place] % (Auto) Eos % (Auto) Baso % (Auto) Absolute Neuts (auto) Absolute Lymphs (auto) Absolute Monos (auto) Absolute Eos (auto) Absolute Basos (auto) Absolute Nucleated RBC Nucleated RBC % D-Dimer, Quantitative Sodium Potassium Chloride Carbon Dioxide Anion Gap BUN Creatinine Est GFR ( Amer) Est GFR (Non-Af Amer) BUN/Creatinine Ratio Glucose Calcium Magnesium Total Bilirubin AST ALT Alkaline Phosphatase Total Creatine Kinase Troponin I B-Natriuretic Peptide Total Protein Albumin Globulin Albumin/Globulin Ratio Triglycerides 176 Cholesterol 167 LDL Cholesterol 99 HDL Cholesterol 32.6 TSH Assess/Plan/Problems-Billing Assessment: Patient is a 71yo female with a PMH significant for HLD and HTN who presents with 4 days of chest pain multiple times a day and exacerbated by activity as well as 6 months of increasing BANKS, edema, and orthopnea, who is now chest pain free. - Patient Problems (1) Angina pectoris Current Visit: No Status: Acute Code(s): I20.9 - ANGINA PECTORIS, UNSPECIFIED SNOMED Code(s): 516621542 Comment: Patient has had 4 days of chest pain starting in her chest and radiating into her left arm multiple times a day that is worse with exertion. Patient has a ASAD score of 4 representing a 20% chance of [place] in 14 days. Will be kept over the weekend for a stress test on Sunday. Patient had another episode of CP radiating to her arm at approximately 1400 on 12/30. EKG ordered which was normal, will order troponin x3. Self resolved before nitro could be given. (2) Dyspnea on exertion Current Visit: Yes Status: Acute Code(s): R06.09 - OTHER FORMS OF DYSPNEA SNOMED Code(s): 28476698 Comment: Patient has symptomatology and chest XR consistent with CHF. Patient also has new onset murmur 2/6 consistent with aortic stenosis. Will be better clarified on Sunday with stress test and echo and treatment will be optimized based on results. (3) HLD (hyperlipidemia) Current Visit: No Status: Chronic Code(s): E78.5 - HYPERLIPIDEMIA, UNSPECIFIED SNOMED Code(s): 92417395 Comment: Lipid panel shows LDL of 99 and HDL of 32 with a total of 176. Would benefit from statin therapy based on new diagnosis of DM. Will begin at discharge after CK and CMP checked in morning. (4) HTN (hypertension) Current Visit: No Status: Chronic Code(s): I10 - ESSENTIAL (PRIMARY) HYPERTENSION SNOMED Code(s): 37119577 Comment: Holding home Atenolol for bradycardia. Patient's BP controlled in the hospital on no medications. Will resume atenolol at lower dose of HR will allow. Will begin ACEI if patient is found to have CHF or needs additional BP control. Stop Chlorthalidone for now. (5) Diabetes mellitus Current Visit: Yes Status: Acute Code(s): E11.9 - TYPE 2 DIABETES MELLITUS WITHOUT COMPLICATIONS SNOMED Code(s): 12807788 Comment: HbA1c 7.0. Will monitor FSBG AC while in hospital. Will hold off on insulin or metformin therapy. (6) DVT prophylaxis Current Visit: No Status: Acute Code(s): HUF9436 - SNOMED Code(s): 622449989 Comment: SQ Heparin Status and Disposition: Patient is admitted pending a Stress Test on Sunday due to high ASAD score. Will discharge to home if no further need for intervention at that time.
[2016-12-31] MEDS: Acetaminophen TAB* 325 MG PO PRN (22:34)
[2017-01-01] MEDS: Heparin VIAL(*) 5000 UNITS/ML VIAL (FIVE THOUSAND) SUBCUT SCH (05:05)
[2017-01-01] MEDS: Omeprazole CAP* 20 MG PO SCH (05:05)
[2017-01-01 05:56] LABS: Hematocrit 36 % (35-47); Hemoglobin 11.8 g/dl (12.0-16.0); Mean Corpuscular HGB Conc 33 g/dl (31-36); Mean Corpuscular Hemoglobin 27 pg (27-31); Mean Corpuscular Volume 80 fL (80-97); Mean Platelet Volume 10 um3 (7.4-10.4); Red Blood Count 4.43 10^6/ul (4.0-5.4); Red Cell Distribution Width 15 % (10.5-15); White Blood Count 9.7 10^3/ul (3.5-10.8)
[2017-01-01 06:11] LABS: Albumin 3.4 g/dL (3.2-5.2); BUN/Creatinine Ratio 18.1 (8-20); Calcium 8.7 mg/dL (8.6-10.3); EGFR African American 75.1 (>60); EGFR Non-African American 58.4 (>60); Globulin 2.8 g/dL (2-4); Potassium 3.6 mmol/L (3.5-5.0); Total Bilirubin 0.3 mg/dL (0.2-1.0); Total Protein 6.2 g/dL (6.4-8.9)
[2017-01-01] MEDS: Aspirin EC Low Dose* 81 MG TAB.EC PO SCH (09:49)
[2017-01-01] MEDS: Docusate CAP* 100 MG PO SCH (09:49)
--- NOTE | 2017-01-01 09:59 | RAD ---
HISTORY: Chest pain, shortness of breath, hypertension, hyperlipidemia, obesity, family history of heart disease, abnormal EKG COMPARISONS: November 26, 2014 TECHNIQUE: A 1 day stress/rest myocardial perfusion study was performed, with pharmacologic stress. The stress portion was monitored by Dr. Salas. Gated SPECT imaging was performed, with CT-based attenuation correction DOSE: Stress: Technetium 99m tetrofosmin, 25.66 millicuries, injected at 8:30 AM on January 01, 2017 Rest: Technetium 99m tetrofosmin, 10.83 millicuries, injected at 6:30 AM on January 01, 2017 Pharmacologic agent: Lexiscan FINDINGS: CARDIAC MONITORING: No EKG changes of ischemia with stress EF: 73 % TID: 1.18 MOTION: Normal motion, with normal wall thickening. PERFUSION: There are no fixed or reversible perfusion defects. A small defect on the a.c. images is felt to represent artifact of attenuation correction. OTHER: None IMPRESSION: NO FIXED OR REVERSIBLE PERFUSION DEFECTS. ASSESSMENT: LOW RISK. Based on imaging criteria from ACC/AHA 2002. Guideline Update for the Management of Patient's with Chronic Stable Angina, table 23. Noninvasive Risk Stratification.
[2017-01-01] MEDS ORDERED: Lisinopril TAB* 5 MG PO SCH (11:00)
[2017-01-01] MEDS ORDERED: Regadenoson* 0.4 MG/5 ML SYRINGE ONE (11:38)
[2017-01-01] MEDS ORDERED: Aminophylline IV* 25 MG/ML 10 ML VIAL ONE (11:39)
--- NOTE | 2017-01-01 13:33 | ECHO ---
Patient: BOBO ROJO [facility] Rec#: [id number] : 1945 Date: 01/01/2017 Age: 71y Height: 157.48 cm / 62.0 in Weight: 81.19 kg / 178.9 lbs Sex: F BSA: 1.82 Room#: 434 Admit Date#: 12/29/2016 Type: Inpatient Referring: Catracho Verdugo MD Reading: Derek Mejia MD Supervisor Hanging And Trimming: Mendy Matson,SERACS,RDMS CC: Sanjuanita Dow MD Transthoracic Echocardiogram Indication: Murmur BP: 139/65 HR: 63 Rhythm: NSR with PVCs Findings History: HTN, HLD Technical Comments: The study quality is good. Left Ventricle: The left ventricular chamber size is normal. Mild to moderate concentric left ventricular hypertrophy is observed. The estimated ejection fraction is 55-60%. There is no consistent Doppler evidence of clinically significant diastolic dysfunction. Left Atrium: The left atrial chamber size is normal. Right Ventricle: The right ventricular chamber size and systolic function are within normal limits. Right Atrium: The right atrial cavity size is normal. Aortic Valve: The aortic valve is trileaflet. There is no evidence of aortic valve thickening. There is aortic annular calcification. There is a trace of aortic regurgitation. There is mild aortic stenosis. The mean gradient of the aortic valve is 9.2 mmHg. The aortic valve area, by peak velocities, is calculated at 1.8 cm2. Mitral Valve: The mitral valve leaflets appear normal. There is mild to moderate mitral regurgitation. There is no evidence of mitral stenosis. Tricuspid Valve: The tricuspid valve leaflets are normal. There is trace tricuspid regurgitation. No pulmonary hypertension is noted. Pulmonic Valve: The pulmonic valve appears normal. There is a trace pulmonic regurgitation. Pericardium: There is no significant pericardial effusion. Aorta: The aortic root appears normal. There is no dilatation of the aortic arch. Pulmonary Artery: The main pulmonary artery appears normal. Venous: The inferior vena cava appears normal in size. There is an approximate 50% respiratory change in the inferior vena cava dimension. Summary: There was not any prior study for comparison. Conclusions The left ventricular chamber size is normal. Mild to moderate concentric left ventricular hypertrophy is observed. The estimated ejection fraction is 55-60%. There is no consistent Doppler evidence of clinically significant diastolic dysfunction. There is a trace of aortic regurgitation. There is mild aortic stenosis. There is mild to moderate mitral regurgitation. There is trace tricuspid regurgitation. Measurements Name Value Normal Range RVIDd (AP) 2D 2.9 cm (0.9 - 2.6) RVDdMajor (2D) 3.4 cm (2.2 - 4.4) RAd ISD 4CH 4.4 cm (3.4 - 4.9) RA (A4C)W 3.6 cm (2.9 - 4.6) IVSd (2D) 1.4 cm (0.6 - 1) LVPWd (2D) 1.3 cm (0.6 - 1) LVIDd (2D) 3.9 cm (3.6 - 5.4) LVIDs (2D) 3 cm - LV FS (2D) 23 % (25 - 45) Aortic Annulus 2 cm (1.4 - 2.6) Ao root diameter (2D) 2.5 cm (2.1 - 3.5) Ascending Ao 3 cm (2.1 - 3.4) Aortic arch 2.3 cm (1.8 - 3.4) LA dimension (AP) 2D 3.9 cm (2.3 - 3.8) LAd ISD 4CH 5.1 cm (2.9 - 5.3) LA ISD 4CH W 4.3 cm (2.5 - 4.5) Name Value Normal Range LA ESV SP 4CH (A/L) 62.23 ml - LA ESV SP 2CH (A/L) 52.99 ml - LA ESV BP (A/L) 60.75 ml - LA ESV BP (A/L) index 33 ml/m2 - LA ESV SP 4CH (MOD) 59.28 ml - LA ESV SP 2CH (MOD) 49.65 ml - Name Value Normal Range MV E-wave Vmax 1 m/sec - MV deceleration time 160 msec - MV A-wave Vmax 0.8 m/sec - MV E:A ratio 1.2 ratio - P. vein S-wave Vmax 0.6 m/sec - P. vein D-wave Vmax 0.5 m/sec - P. vein S:D Vmax ratio 1.3 ratio - P. vein A-wave duration 118 msec - LV septal e' Vmax 0.04 m/sec - LV lateral e' Vmax 0.09 m/sec - LV E:e' septal ratio 23.4 ratio - LV E:e' lateral ratio 11 ratio - Name Value Normal Range AV Vmax 2.3 m/sec - AV VTI 52.7 cm - AV peak gradient 21 mmHg - AV mean gradient 9.2 mmHg - LVOT diameter 1.9 cm - LVOT Vmax 1.5 m/sec - LVOT VTI 32.2 cm - LVOT peak gradient 9 mmHg - LVOT mean gradient 4.6 mmHg - DOI (VTI) 0.6 ratio - LIZET (continuity Vmax) 1.8 cm2 - LIZET (continuity VTI) 1.7 cm2 - ROSEMARY Vmax 0.7 m/sec - Name Value Normal Range TR Vmax 2.2 m/sec - TR peak gradient 19 mmHg - RAP 3 mmHg - RVSP 22 mmHg - IVC diameter 1.4 cm - Name Value Normal Range PV Vmax 0.9 m/sec - PV peak gradient 3.2 mmHg -
[2017-01-01 14:48] VITALS: BP 159/50
--- NOTE | 2017-01-02 10:13 | DS ---
CONTINUATION ADDENDUM NOW INCLUDED ON THIS REPORT CC: Dr. Dow* DISCHARGE SUMMARY: DATE OF ADMISSION: 12/29/16 DATE OF DISCHARGE: 01/01/17 PRIMARY CARE DOCTOR: Dr. Sanjuanita Dow. ATTENDING WHILE IN THE HOSPITAL: Dr. Danni Rangel * (DICTATED BY MELECIO ERNANDEZ) PRIMARY DISCHARGE DIAGNOSES: 1. Chest pain. 2. Diabetes mellitus type 2, newly diagnosed. SECONDARY DISCHARGE DIAGNOSES: 1. Hypertension. 2. Hyperlipidemia. STUDIES DONE WHILE IN THE HOSPITAL: Electrocardiogram from December 29 at 1614 shows J-point elevation in leads V1, V2, V3. Rate 44. No ST segment abnormalities. Normal axes. No other abnormalities. EKG from December 30 at 0600 shows no changes from previous exam. Repeat chest x-ray from December 30 at 1340 shows no changes, rate 56. Chest x-ray from December 29 read as mild engorgement of pulmonary vasculature compared to 2014 chest x-ray could be seen in the setting of mild congestive heart failure. Chest/thorax CTA read as no CT evidence for pulmonary embolism, chronic degenerative changes described in the body of the report. Venous Doppler from 12/30/16 shows no left lower extremity deep vein thrombosis. Transthoracic echocardiogram from 01/01/17 read as left ventricular chamber size normal, [id number] concentric left ventricular hypertrophy, estimated ejection fraction 55% to 60%. No consistent Doppler evidence of significant diastolic function, trace aortic regurgitation, mild aortic stenosis, [id number] mitral regurgitation, trace tricuspid regurgitation. Nuclear medicine stress test from 01/01/17 read as no fixed or reversible perfusion defects. Low risk. CONTINUATION ADDENDUM: HOSPITAL COURSE: This is a brief summary of the hospital course. For more details please see History and Physical from Pavel Ramirez on 12/29/16. In brief, patient is a [id number] with a past medical history significant for hyperlipidemia and hypertension who comes in with 4 days of chest pain on the left side of her chest been radiating down her arm worsening with exercise as well as 6 month of worsening shortness of breath and fatigue as well orthopnea. Patient also recently came back from a 14 hour flight from [place] and even though she was active during the flight it was 14 hours long patient was admitted for a chest pain rule out myocardial infarction and pulmonary embolism. Patient had a battery of tests including a chest/thorax CTA in the Emergency Department that was negative. A chest x-ray which showed possible mild pulmonary congestion and a venous Doppler study of her legs, which showed no deep vein thrombosis even though she had somewhat asymmetrical leg swelling and tenderness of the medial aspect of her left thigh. Patient on her stay in the hospital 12/30/16 had an episode of recurrent chest pain. EKG was performed , a set of serial troponins was obtained and nitroglycerin was ordered, but not given because the chest pain self resolved. There were no other symptoms. No shortness of breath or dizziness. The patient's vital signs were not abnormal and nitro was not needed to be given, the troponins were negative, and there were no ST-T changes on the study. The patient had no other recurrence of the chest pain throughout the hospitalization. Patient was bradycardic at 42 when she came into the emergency department. Patient was on atenolol, which was held in the hospital, her pulse rate that are seemed to exceed 70s stayed in between 50 and 70 at most times of the day. Patient had an uneventful day on and on the morning 01/01/17 had a nuclear medicine chemical stress test, which showed no areas of reversible ischemia, low risk, and ejection fraction of 73%. Patient had no chest pain during the exam, but was slightly dizzy afterwards, but this is not unusual for chemical stress tests. Patient then had a transthoracic echocardiogram to evaluate a new onset murmur which had been heard by her primary care doctor, consistent with aortic stenosis. The exam was read as above with no significant findings except mild concentric left ventricular hypertrophy. The patient was found to have hemoglobin A1c of 7 while in the hospital, and lipid panel showing cholesterol of 167, LDL cholesterol of 99, HDL cholesterol 32 and triglycerides are 176. The patient was then discharged to home on 01/01/17. Patient will be started on statin due to her LDL cholesterol and her new onset diabetes mellitus based on a hemoglobin A1c of 7. Patient states she has been eating lots of sugary fruit while in [place] and blamed this and would attempt to control her diabetes with diet and exercise. Patient had previously been diagnosed with prediabetes and had controlled it with exercise and diet. She also has the unresolved issue of shortness of breath on exertion and orthopnea to follow up with her PCP. PHYSICAL EXAM ON DAY OF DISCHARGE: General: Patient is a 71-year-old female who appears stated age and sitting comfortably in same bed in no acute distress. Vital Signs: At discharge, temperature 98.7, heart rate 70, respiratory rate 20, oxygen saturation 98% on room air, blood pressure 158/50. HEENT: Head normocephalic, atraumatic. Sclerae anicteric. No conjunctival injection. Pharynx nonerythematous. Mucous membranes moist. Neck: Supple, nontender. No lymphadenopathy. No carotid bruits auscultated. Cardiac: Regular rate and rhythm, grade 2/6 systolic ejection murmur, heard best at the second intercostal space at the left upper sternal border. No other sounds. Pulses 2+ bilaterally in the dorsalis pedis, radial, and posterior tibialis areas; trace edema noted in the lower extremities. Respiratory: Clear to auscultation bilaterally. No wheezes, rales, or rhonchi. Abdomen: Soft, nondistended. Bowel sounds present. Normoactive in all 4 quadrants. Slight tenderness to palpation over the right lower quadrant representing the previously diagnosed hernia. No hepatosplenomegaly. : No suprapubic tenderness or CVA tenderness. Skin: Clean, dry, and intact. No rashes. Neuro: Cranial nerves II through XII grossly intact. Normal gait. No other abnormalities noted. Psychiatric: Very pleasant, chatty, and cooperative. LABORATORY STUDIES ON DAY OF DISCHARGE: White blood cells 9.7, hemoglobin 11.8 , hematocrit 36, MCV 80, MCH 27, MCHC 23, platelet count 214. Sodium 136, potassium 3.6, chloride 102, carbon dioxide 27, anion gap 7, BUN 17 and creatinine 0.94, glucose 126, calcium 8.7, AST 16, ALT 11, total protein 6.2, albumin 3.4. There were 6 troponins during the admission, which were negative. DISCHARGE PLAN: The patient has been ruled out for myocardial infarction and risk. Patient had a ASAD score of 4 upon admission, representing a pre test probability of 20% for [place] within next 14 days. Patient should follow up with her primary care physician for management of risk factors including controlling her diabetes mellitus and her hyperlipidemia as well as hypertension. Patient will be switched from her atenolol/hydrochlorothiazide combination due to bradycardia and leg cramps to lisinopril 5 mg p.o. daily. Patient's primary care doctor should titrate up as needed for hypertension. This is the right choice also for patients with diabetes mellitus. Patient will trial to control her diabetes with diet and exercise alone. Patient should repeat hemoglobin A1c in 3 to 6 months to assess the efficacy of treatment and should be started on metformin at that time if she is unsuccessful in decreasing her hemoglobin A1c significantly. Would also recommend PFTs as patient has a history of quiescent asthma that may be acting up. Patient may also have diastolic heart failure necessitating treatment even though her echo showed no significant diastolic dysfunction. ACTIVITY: As tolerated. Consider giving patient a handicapped parking pass to facilitate her more easily going to the gym for exercise. DIET: Heart healthy, low salt, low fat, consistent carbohydrate, caffeine okay. TIME SPENT: Approximately 75 minutes was spent on this discharge, 45 of which spent [id number] with the patient obtaining the history and physical and discussing the treatment plan with her and her son. MELECIO ERNANDEZ [id number]/CPS #: [id number]/CPS #: [id number] DEEPIKA
--- NOTE | 2017-01-02 10:46 | DS ---
ADDENDUM:* DISCHARGE SUMMARY: HOSPITAL COURSE: This is a brief summary of the hospital course. For more details please see History and Physical from Pavel Ramirez on 12/29/16. In brief, patient is a [id number] with a past medical history significant for hyperlipidemia and hypertension who comes in with 4 days of chest pain on the left side of her chest been radiating down her arm worsening with exercise as well as 6 month of worsening shortness of breath and fatigue as well orthopnea. Patient also recently came back from a 14 hour flight from [place] and even though she was active during the flight it was 14 hours long patient was admitted for a chest pain rule out myocardial infarction and pulmonary embolism. Patient had a battery of tests including a chest/thorax CTA in the Emergency Department that was negative. A chest x-ray which showed possible mild pulmonary congestion and a venous Doppler study of her legs, which showed no deep vein thrombosis even though she had somewhat asymmetrical leg swelling and tenderness of the medial aspect of her left thigh. Patient on her stay in the hospital 12/30/16 had an episode of recurrent chest pain. EKG was performed , a set of serial troponins was obtained and nitroglycerin was ordered, but not given because the chest pain self resolved. There were no other symptoms. No shortness of breath or dizziness. The patient's vital signs were not abnormal and nitro was not needed to be given, the troponins were negative, and there were no ST-T changes on the study. The patient had no other recurrence of the chest pain throughout the hospitalization. Patient was bradycardic at 44 when she came into the emergency department. Patient was on atenolol, which was held in the hospital, her pulse rate that are seemed to exceed 70s stayed in between 50 and 70 at most times of the day. Patient had an uneventful day on and on the morning 01/01/17 had a nuclear medicine chemical stress test, which showed no areas of reversible ischemia, low risk, and ejection fraction of 73%. Patient had no chest pain during the exam, but was slightly dizzy afterwards, but this is not unusual for chemical stress tests. Patient then had a transthoracic echocardiogram to evaluate a new onset murmur which had been heard by her primary care doctor, consistent with aortic stenosis. The exam was read as above with no significant findings except mild concentric left ventricular hypertrophy. The patient was found to have hemoglobin A1c of 7 while in the hospital and lipid panel showing cholesterol of 167, LDL cholesterol of 99, HDL cholesterol 32 and triglycerides are 176. The patient was then discharged to home on 01/01/17. Patient will be started on statin due to her LDL cholesterol and her new onset diabetes mellitus based on a hemoglobin A1c of 7. Patient states she has been eating lots of sugary fruit while in [place] and blamed this and would attempt to control her diabetes with diet and exercise. Patient had previously been diagnosed with prediabetes and had controlled it with exercise and diet. She also has the unresolved issue of shortness of breath on exertion and orthopnea to follow up with her PCP. PHYSICAL EXAM ON DAY OF DISCHARGE: General: Patient is a 71-year-old female who appears stated age and sitting comfortably in same bed in no acute distress. Vital Signs: At discharge, temperature 98.7, heart rate 70, respiratory rate 20, oxygen saturation 98% on room air, blood pressure 158/50. HEENT: Head normocephalic, atraumatic. Sclerae anicteric. No conjunctival injection. Pharynx nonerythematous. Mucous membranes moist. Neck: Supple, nontender. No lymphadenopathy. No carotid bruits auscultated. Cardiac: Regular rate and rhythm, grade 2/6 systolic ejection murmur, heard best at the second intercostal space at the left upper sternal border. No other sounds. Pulses 2+ bilaterally in the dorsalis pedis, radial, and posterior tibialis areas; trace edema noted in the lower extremities. Respiratory: Clear to auscultation bilaterally. No wheezes, rales, or rhonchi. Abdomen: Soft, nondistended. Bowel sounds present. Normoactive in all 4 quadrants. Slight tenderness to palpation over the right lower quadrant representing the previously diagnosed hernia. No hepatosplenomegaly. : No suprapubic tenderness or CVA tenderness. Skin: Clean, dry, and intact. No rashes. Neuro: Cranial nerves II through XII grossly intact. Normal gait. No other abnormalities noted. Psychiatric: Very pleasant, chatty, and cooperative. LABORATORY STUDIES ON DAY OF DISCHARGE: White blood cells 9.7, hemoglobin 11.8 , hematocrit 36, MCV 80, MCH 27, MCHC 23, platelet count 214. Sodium 136, potassium 3.6, chloride 102, carbon dioxide 27, anion gap 7, BUN 17 and creatinine 0.94, glucose 126, calcium 8.7, AST 16, ALT 11, total protein 6.2, albumin 3.4. There were 6 troponins during the admission, which were negative. DISCHARGE PLAN: The patient has been ruled out for myocardial infarction and risk. Patient had a ASAD score of 4 upon admission, representing a pre test probability of 20% for [place] within next 14 days. Patient should follow up with her primary care physician for management of risk factors including controlling her diabetes mellitus and her hyperlipidemia as well as hypertension. Patient will be switched from her atenolol/hydrochlorothiazide combination due to bradycardia and leg cramps to lisinopril 5 mg p.o. daily. Patient's primary care doctor should titrate up as needed for hypertension. This is the right choice also for patients with diabetes mellitus. Patient will trial to control her diabetes with diet and exercise alone. Patient should repeat hemoglobin A1c in 3 to 6 months to assess the efficacy of treatment and should be started on metformin at that time if she is unsuccessful in decreasing her hemoglobin A1c significantly. Would also recommend PFTs as patient has a history of quiescent asthma that may be acting up. Patient may also have diastolic heart failure necessitating treatment even though her echo showed no significant diastolic dysfunction. ACTIVITY: As tolerated. Consider giving patient a handicapped parking pass to facilitate her more easily going to the gym for exercise. DIET: Heart healthy, low salt, low fat, consistent carbohydrate, caffeine okay. TIME SPENT: Approximately 75 minutes was spent on this discharge, 45 of which spent [id number] with the patient obtaining the history and physical and discussing the treatment plan with her and her son. MELECIO ERNANDEZ [id number]/[place] #: [id number] DEEPIKA
== END 2017-01-01 15:18 | disposition home or self-care (01) | DRG 311 ==
LOC: ED 15:32 → MEDTELE 20:08 → OBSVTOIN 01-01 08:07
PROVIDERS: ADMIT Hospitalist; ATTEND Internal Medicine
DX: I20.9 Angina pectoris, unspecified (principal); I11.0 Hypertensive heart disease with heart failure; R00.1 Bradycardia, unspecified; I50.32 Chronic diastolic (congestive) heart failure; E11.9 Type 2 diabetes mellitus without complications; M48.00 Spinal stenosis, site unspecified; M19.90 Unspecified osteoarthritis, unspecified site; H26.9 Unspecified cataract; E78.5 Hyperlipidemia, unspecified; I08.3 Combined rheumatic disorders of mitral, aortic and tricuspid valves; T44.7X5A Adverse effect of beta-adrenoreceptor antagonists, initial encounter; T50.2X5A Adverse effect of carbonic-anhydrase inhibitors, benzothiadiazides and other diuretics, initial encounter; R25.2 Cramp and spasm; J45.998 Other asthma; Z88.0 Allergy status to penicillin; Z98.51 Tubal ligation status; Z82.3 Family history of stroke; Z82.49 Family history of ischemic heart disease and other diseases of the circulatory system; Y92.9 Unspecified place or not applicable
CPT/HCPCS: 36415; 71010; 71275; 78452; 80048; 80053; 80061; 82550; 83036; 83735; 83880; 84443; 84484; 85025; 85379; 93005; 93017; 93306; 94760; A9270-GY; A9502; G0378; J0280; J1644; J2785; Q9967

== ENCOUNTER 2019-04-22 07:17 | Emergency (ER) | payer MEDICARE ==
--- NOTE | 2019-04-22 07:42 | ED ---
Complex/Multi-Sys Presentation - HPI Summary HPI Summary: 73 year old F arriving via ambulance complains of light headedness, dizziness, diaphoresis, worsening shortness of breath, nausea, vomiting x1, mild headache, sharp right lower abdominal pain all of which began while lying down before waking up today 04/22/2019 05:45. Patient states that she woke up, did her prayers, and still didn't feel well. She reports scratchy throat, cough, constipation. No chest pain, fever, diarrhea, chills, back pain, pain or burning with urination. Pain rated 0/10 in severity. Symptoms aggravated by nothing. Symptoms alleviated by nothing. Patient states she has never had these symptoms before. Hx vertigo. Patient states that these symptoms do not feel like vertigo. Medications reviewed. Allergies noted. Patient states she has been to the hospital before for cardiac hx. Hx borderline diabetes. Hx hypertension. No hx CVA or TIA. No hx DVT or PE. Has had ultrasound done for PE in the past which was negative. Abdominal surgical hx tubal ligation. - History Of Current Complaint Chief Complaint: EDGeneral Time Seen by Provider: 04/22/19 07:22 Hx Obtained From: Patient Onset/Duration: Lasting Hours, Still Present Timing: Constant Severity Currently: None Aggravating Factor(s): Nothing Alleviating Factor(s): Nothing Associated Signs And Symptoms: Positive: Other - scratchy throat, cough, constipation; NEG: chest pain, fever, diarrhea, chills, back pain, pain or burning with urination - Allergies/Home Medications Allergies/Adverse Reactions: Allergies Allergy/AdvReac Type Severity Reaction Status Date / Time Penicillins Allergy Unknown Verified 04/22/19 07:27 Reaction Details PMH/Surg Hx/FS Hx/Imm Hx Endocrine/Hematology History: Reports: Hx Anticoagulant Therapy - ASA Cardiovascular History: Reports: Hx Angina, Hx Hypercholesterolemia - DIET CONTROLLED, Hx Hypertension, Other Cardiovascular Problems/Disorders - spinal stenosis Denies: Hx Coronary Artery Disease, Hx Myocardial Infarction, Hx Valvular Heart Disease Respiratory History: Denies: Hx Asthma History: Reports: Other Problems/Disorders - problems /c constipation Denies: Hx Renal Disease Musculoskeletal History: Reports: Hx Arthritis, Hx Back Problems, Other Musculoskeletal History - SPINAL STENOSIS Sensory History: Reports: Hx Cataracts - both eyes., Hx Vision Problem - Has " sx consult for overactive tear ducts" Denies: Hx Contacts or Glasses, Hx Hearing Aid, Other Sensory Impairments Opthamlomology History: Reports: Hx Cataracts - both eyes., Hx Vision Problem - Has "sx consult for overactive tear ducts" Denies: Hx Contacts or Glasses, Other Sensory Impairments Psychiatric History: Denies: Other Psychiatric Issues/Disorders - Surgical History Surgery Procedure, Year, and Place: Tubal Ligation. Uterine Polyps removed 2012 Hx Anesthesia Reactions: No Infectious Disease History: No Infectious Disease History: Denies: Traveled Outside the [place] in Last 30 Days - Family History Known Family History: Positive: Cardiac Disease - angina father, bypass in brothers, Other - CVA - Social History Alcohol Use: None Substance Use Type: Reports: None Hx Tobacco Use: No Smoking Status (MU): Never Smoked Tobacco Have You Smoked in the Last Year: No Review of Systems Positive: Skin Diaphoresis. Negative: Fever, Chills Positive: Sore Throat Negative: Chest Pain Positive: Shortness Of Breath, Cough Positive: Abdominal Pain, Vomiting, Nausea, Other - constipation. Negative: Diarrhea Negative: burning, pain Musculoskeletal: Negative - back pain Neurological: Other - light headedness, dizziness Positive: Headache All Other Systems Reviewed And Are Negative: Yes Physical Exam - Summary Physical Exam Summary: Constitutional: Well-developed, Well-nourished, Alert. (-) Distressed Skin: Warm, Dry HENT: Normocephalic; Atraumatic Eyes: Conjunctiva normal. No nystagmus Neck: Musculoskeletal ROM normal neck. (-) JVD, (-) Stridor, (-) Tracheal deviation Cardio: Rhythm regular, rate normal, Heart sounds normal; Intact distal pulses; The pedal pulses are 2+ and symmetric. Radial pulses are 2+ and symmetric. (-) Murmur Pulmonary/Chest wall: Effort normal. (-) Respiratory distress, (-) Wheezes, (-) Rales Abd: Soft, (-) Distension, (-) Guarding, (-) Rebound. Mild right sided tenderness. No flank tenderness. Musculoskeletal: (-) Edema Lymph: (-) Cervical adenopathy Neuro: Alert, Oriented x3. No focal deficits Psych: Mood and affect Normal GCS: 15 Triage Information Reviewed: Yes Vital Signs On Initial Exam: Initial Vitals Temp Pulse Resp BP Pulse Ox 98.1 F 65 18 124/84 100 04/22/19 07:23 04/22/19 07:23 04/22/19 07:23 04/22/19 07:23 04/22/19 07:23 Vital Signs Reviewed: Yes Procedures - Sedation Patient Received Moderate/Deep Sedation with Procedure: No Diagnostics - Vital Signs Vital Signs Temp Pulse Resp BP Pulse Ox 04/22/19 07:23 98.1 F 65 18 124/84 100 - Laboratory Result Diagrams: 04/22/19 08:00 04/22/19 08:00 Lab Statement: Any lab studies that have been ordered have been reviewed, and results considered in the medical decision making process. - Radiology CXR Radiology Interpretation Completed By: Radiologist Summary of Radiographic Findings: No acute cardiopulmonary process evident. Negative exam. ED physician has reviewed this report. - CT ABD/PEL CT Interpretation Completed By: Radiologist Summary of CT Findings: 1. No clear etiology for the patient's symptoms. 2. Small hiatal hernia. 3. Small perifocal fat-containing hernia. ED physician has reviewed this report. Brain CT Interpretation Completed By: Radiologist Summary of CT Findings: NO ACUTE INTRACRANIAL PATHOLOGY. ED physician has reviewed this report. - EKG 0749 Cardiac Rate: NL - 61 BPM EKG Rhythm: Sinus Rhythm Summary of EKG Findings: No ischemic changes. Dr. Brunson has reviewed and interpreted this EKG. Re-Evaluation - Re-Evaluation First Eval Re-Evaluation Time: 11:15 Comment: patient updated on lab and imaging findings. she agrees to discharge Second Eval Re-Evaluation Time: 11:40 Change: Worse Comment: patient is dizzy upon walking per nurse. will order meclizine Third Eval Re-Evaluation Time: 14:19 Change: Improved Comment: patient agrees to d/c Complex Multi-Symp Course/Dx Course Of Treatment: 73 y/o F arriving via ambulance complains of light headedness, dizziness, diaphoresis, worsening shortness of breath, nausea, vomiting x1, mild headache, sharp right lower abdominal pain all of which began while lying down before waking up today 04/22/2019 05:45. Patient states that she woke up, did her prayers, and still didn't feel well. She reports scratchy throat, cough, constipation. No chest pain, fever, diarrhea, chills, back pain, pain or burning with urination. Upon exam, the abdomen is soft and non- distended. Mild right sided tenderness. No flank tenderness. No nystagmus. No focal deficits. Bloodwork results with no significant abnormalities except for Hgb 11.7, MCV 78, MCH 26, creatinine 1.14, BUN/creatinine 21.1, glucose 165. An EKG shows NSR 61 BPM and no ischemic changes. CXR shows per radiologist: No acute cardiopulmonary process evident. Negative exam. CT Abd/Pel shows, per radiologist: 1. No clear etiology for the patient's symptoms. 2. Small hiatal hernia. 3. Small perifocal fat-containing hernia. CT Brain shows, per radiologist: NO ACUTE INTRACRANIAL PATHOLOGY. In the ED course, the patient was given normal saline 1 L IV. Patient is dizzy upon walking per nurse so she was given meclizine after which she felt better. Patient will be discharged home with follow up from her primary care provider in 1-2 days. Patient was instructed to return to Emergency Department for new or worsening symptoms. Patient understands and is agreeable to this plan. - Diagnoses Provider Diagnoses: Dizziness, Abdominal pain Discharge ED - Sign-Out/Discharge Documenting (check all that apply): Patient Departure - Discharge Plan Condition: Stable Disposition: HOME Patient Education Materials: Abdominal Pain (ED), Dizziness (ED) Referrals: Sanjuanita Dow MD [Primary Care Provider] - 1 Day Additional Instructions: Follow up with your primary care provider in 1-2 days. Return to the Emergency Department for new or worsening symptoms. - Billing Disposition and Condition Condition: STABLE Disposition: Home - Attestation Statements Document Initiated by Saleem: Yes Documenting Scribe: Meghann Dawson Provider For Whom Saleem is Documenting (Include Credential): Akbar Brunson DO Scribe Attestation: Meghann Strauss, loiibed for Akbar Brunson DO on 04/22/19 at 1713. Scribe Documentation Reviewed: Yes Provider Attestation: The documentation as recorded by the scribe, Meghann Dawson accurately reflects the service I personally performed and the decisions made by me, Akbar Brunson DO Status of Scribe Document: Viewed
[2019-04-22] MEDS ORDERED: NS 0.9% 1000 ML** 1,000 ML IV ONE ×2 (07:44→11:41)
[2019-04-22 08:09] LABS: ABS Eosinophils 0.3 10^3/ul (0-0.6); ABS Lymphocytes 1.8 10^3/ul (1.0-4.8); ABS Monocytes 0.6 10^3/ul (0-0.8); ABS Neutrophils 5.4 10^3/ul (1.5-7.7); Eosinophil % 4.2 %; Hematocrit 35 % (35-47); Hemoglobin 11.7 g/dL (12.0-16.0); Lymphocyte % 21.8 %; Mean Corpuscular HGB Conc 33 g/dL (31-36); Mean Corpuscular Hemoglobin 26 pg (27-31); Mean Corpuscular Volume 78 fL (80-97); Mean Platelet Volume 9.8 fL (7.4-10.4); Platelet Count 208 10^3/uL (150-450); Red Blood Count 4.56 10^6 /uL (3.70-4.87); Red Cell Distribution Width 15 % (10-15); White Blood Count 8.1 10^3/uL (3.5-10.8)
[2019-04-22 08:24] LABS: Albumin 3.6 g/dL (3.2-5.2); Albumin/Globulin Ratio 1.3 (1-3); BUN/Creatinine Ratio 21.1 (8-20); EGFR African American 56.2 (>60); EGFR Non-African American 46.5 (>60); Globulin 2.8 g/dL (2-4); Potassium 3.7 mmol/L (3.5-5.0); Total Bilirubin 0.2 mg/dL (0.2-1.0); Total Protein 6.4 g/dL (6.4-8.9)
[2019-04-22] MEDS ORDERED: Iodixanol* (CONTRAST) 320 MG/ML 100 ML SDV IV ONE (08:46)
--- OUTSIDE RECORDS SUMMARY | 2019-04-22 08:53 | XMS REPORT | Continuity of Care Document ---
:1945 External Reference #:[id number] Author Name Deidre Hutchinson O.D. Address [address] [place] [address] Care Team Providers Name Role Phone Sanjuanita oDw M.D. - Family Care Team Information Social Studies Department Chair Medicine Esteban Bradley M.D. - Care Team Information Social Studies Department Chair [phone] Cardiovascular Disease Problems Active Problems Provider Date Internal hordeolum Shantell Baldwin O.D. Onset: 07/22/2014 Degenerative Disorders Of Skin Affecting Shantell Baldwin O.D. Onset: 2014 Eyelid Spinal stenosis Onset: Rheumatoid arthritis Onset: Essential hypertension Onset: Stenosis of lacrimal canaliculi Shantell Baldwin O.D. Onset: 11/28/2014 Nuclear senile cataract Shantell Baldwin O.D. Onset: 12/25/2015 Angular blepharoconjunctivitis Shantell Baldwin O.D. Onset: 12/25/2015 Tear film insufficiency Deidre Hutchinson O.D. Onset: 10/27/2017 Type 2 diabetes mellitus Deidre Hutchinson O.D. Onset: 10/27/2017 Chronic allergic conjunctivitis Deidre Hutchinson O.D. Onset: 03/11/2019 Social History Type Date Description Comments Sex Unknown ETOH Use Denies alcohol use Tobacco Use Start: Unknown Patient has never smoked Recreational Drug Use Denies Drug Use Smoking Status Reviewed: 03/11/19 Patient has never smoked Allergies, Adverse Reactions, Alerts Active Allergies Reaction Severity Comments Date Lactose (Allergy) 07/22/2014 Penicillins 07/22/2014 Medications Active Medications SIG Qnty Indications Ordering Date Provider Olopatadine HCL 1 drop every 15ml H10.45 Deidre Hutchinson, 03/11/2019 0.1% Solution day both eyes O.D. as needed Erythromycin apply thin 1Tubes H00.024 Deidre Hutchinson, 03/04/2019 5mg/GM Ointment strip to left O.D. upper eyelid twice a day Warm Compresses QHS Unknown 04/17/2017 Vitamin D3 Unknown 1000Unit Capsules Multi Vitamin Daily Unknown Tablets Aspirin Unknown 81mg Tablets Calcium 600 Unknown 600mg Tablets Systane as needed Deidre Hutchinson, 0.4-0.3% Solution O.D. Rosuvastatin Calcium Take 1 Tablet Unknown 40mg Tablets By Mouth Every Day Lisinopril Unknown 5mg Tablets Amlodipine Besylate Unknown 5mg Tablets Hydrochlorothiazide Take 1 Tablet Unknown 12.5mg Tablets By Mouth Every Day Immunizations Description No Information Available Vital Signs Description No Information Available Results Description No Information Available Procedures Description No Information Available Medical Devices Description No Information Available Encounters Type Date Location Provider Dx Diagnosis Office Visit 03/04/2019 [facility], Deidre Hutchinson, H00.024 Hordeolum 4:30p , pc Raegan internum left upper eyelid Assessments Date Code Description Provider 03/11/2019 H00.024 Hordeolum internum left upper eyelid Deidre Hutchinson O.D. 03/11/2019 H00.021 Hordeolum internum right upper eyelid Deidre Hutchinson O.D. 03/11/2019 H04.123 Dry eye syndrome of bilateral lacrimal glands Deidre Hutchinson O.D. 03/11/2019 H10.45 Other chronic allergic conjunctivitis Deidre Hutchinson O.D. 03/04/2019 H00.024 Hordeolum internum left upper eyelid Deidre Hutchinson O.D. 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 This is when the Meibomian Glands do not function correctly and periodically get blocked up. This is a chronic condition that requires at home treatment. You can prevent a flare up by using a hot compress for 10-15 minutes at a time once or twice per day. There are a few ways you can do this:1) You can wet down a washcloth with hot water. You may have to re-wet the washcloth or twice during the 15 minute period. 2) You can put uncooked white rice into a clean pair of socks, and without wetting the sock or the rice, heat it up in the microwave for30 seconds. The white rice will release a moist heat and will remain warm for roughly 15 minutes. It is recommended that you replace the rice every month and clean the socks.After using the hot compress, massage along the lash line to help the oils in the glands move freely, proving an oil layer foryour tear film, to keep your tears from evaporating. It is also recommended that you use artificaltears throughout the day, even when your eyes do not feel dry. We recommend that you use them 3-4 times a day to prevent your ocular surface from becoming irritated. When you start to experience symptoms of dryness or irritation, it is often too late for the tears to help until you've let your eyes heal overnight.Dr. Hutchinson may prescribe an antibiotic ointment to help you when you have a Meibomitisflare up, but you can also use Refresh PM ointment each night before bed to help keep your ocular surface comfortable. If your eye lashes have debris or crusting on them, there are a couple of things you can do to help with this:1) You can use baby shampoo in the shower in the morning to gently massage your eye lashes and clean them.2) You can use a medicated wipe, called OcuSoft, to help clean the eye lashes. OcuSoft pads look like a tiny wipe, and you can use one OcuSoft pad for both eyes by using each side for each eye.If you have any questions about your condition and the treatment, feel freeto call our office at .H00.021 Hordeolum internum right upper eyelidComments:Smoking can increase the risk of developing or worsening any eye related disease, as well as affect your overall health. If you are a smoker, we strongly recommend that you quit.If you are not a smoker , we strongly recommend that you do not start.H04.123 Dry eye syndrome of bilateral lacrimal glandsComments:continue restasis twice a day both eyesH10.45 Other chronic allergic conjunctivitisNew Medication:Olopatadine HCL 0.1 % - 1 drop every day both eyes as neededComments:You have Allergic Conjunctivitis. Your symptoms can be aggravated by rubbing your eyes. Dr. Kelleyds you use tear drops and a cold compress to alleviate your symptoms. Dr. Hutchinson may also prescribe medication if necessary. start olopatadine drops once daily both eyes as needed Functional Status Description No Information Available Mental Status Description No Information Available Referrals Description No Information Available
--- OUTSIDE RECORDS SUMMARY | 2019-04-22 08:53 | XMS REPORT | Summary of Care ---
:1945 Author Organization [facility] Address [address] [place] [address] Care Team Providers Name Role Phone Sanjuanita Dow MD Primary Care Provider Reason for Visit Reason Comments Lab Work Only done 03/11/19, 12/10/18 Diabetes A1c 7.1 on 03/11/19 Peripheral Neuropathy c/o edmond numbess/pain in feet, but L>R Shoulder Pain c/o worsening right shoulder pain, seen Dr Walsh in the past and had injections Sleep Apnea uses CPAP nightly with no issues Encounter Details Date Type Department Care Team Description 03/13/2019 Office Visit [facility], Diabetes mellitus without complication (HCC) (Primary Dx); Practice Sanjuanita Minor MD Essential hypertension, benign; [address] MARTA (obstructive sleep apnea) [place] [address] [place] [address] [phone] Allergies Active Allergy Reactions Severity Noted Date Comments Lactose Other 01/25/2016 Increased phlegm Penicillins Cardiac Reaction High 07/24/2014 documented as of this encounter (statuses as of 03/13/2019) Medications Medication Sig Dispensed Refills Start Date End Date Status Aspirin 81 MG Oral Take 81 mg by 0 Active TabIndications: not taking mouth. everyday Indications: not taking everyday Naproxen Sodium (ALEVE) Take 1 Tab by 0 Active 220 MG Oral Cap mouth DAILY NEEDED (pain). Cholecalciferol (VITAMIN Take 1 Cap by 0 Active D) 2000 units Oral Cap mouth DAILY. Multiple Vitamins-Minerals Take 1 Tab by 0 Active (MULTIVITAMIN WOMEN 50+ mouth DAILY. PO) lisinopril (PRINIVIL, Take 1 Tab by 90 Tab 1 09/18/2018 Active ZESTRIL) 10 MG Oral mouth DAILY. TabIndications: Aortic valve stenosis, etiology of cardiac valve disease unspecified Rosuvastatin Calcium Take 1 Tab by 90 Tab 3 09/18/2018 Active (CRESTOR) 40 MG Oral mouth DAILY. TabIndications: Coronary artery disease involving [place] coronary artery of [place] heart with other form of angina pectoris (HCC) hydrochlorothiazide (HCTZ, Take 1 Tab by 90 Tab 3 09/18/2018 Active ORETIC) 12.5 MG Oral mouth DAILY. TabIndications: Essential hypertension fluticasone (FLONASE) 50 Register 2 Sprays 1 Bottle 5 09/19/2018 Active MCG/ACT Nasal in nose DAILY. SuspensionIndications: Cough erythromycin (ILOTYCIN) 5 APPLY THIN 0 03/04/2019 Active MG/GM Ophthalmic Ointment STRIP TO LEFT UPPER EYELID TWICE A DAY documented as of this encounter (statuses as of 03/13/2019) Active Problems Problem Noted Date Vitaliy nodes (DJD hand) 12/17/2017 Greater trochanteric bursitis of left hip 10/30/2017 Sciatica 10/28/2017 Arthritis of ankle 10/26/2017 Pain in joint involving left lower leg 10/26/2017 Exercise hypoxemia 03/15/2017 Dyspnea on exertion 03/15/2017 Coronary artery disease involving [place] coronary artery with angina 2016 pectoris Aortic valve stenosis 01/12/2017 Diabetes mellitus without complication 01/05/2017 Fatty pancreas 05/19/2016 Fatty liver 05/19/2016 Gastroesophageal reflux disease 05/19/2016 Seborrhea capitis 05/19/2016 Essential hypertension 01/25/2016 MARTA (obstructive sleep apnea) 01/25/2016 Low back pain radiating to left leg 07/28/2014 Spinal stenosis of lumbar region with radiculopathy 07/28/2014 Essential hypertension, benign 02/24/2014 MARTA on CPAP Overview: normal overnight oximetry 04/05/17 Spinal stenosis, lumbar documented as of this encounter (statuses as of 03/13/2019) Resolved Problems Problem Noted Date Resolved Date Patient in clinical research study 01/30/2017 01/31/2017 Overview: [id number] Strict Versus No Fasting Prior To Cardiac Catheterization: A Prospective Evaluation Of Safety And Clinical Outcomes RANDOMIZATION: Non-FASTING Enrolled: 12/30/2016 Contacts: Monitor Worker: Oscar Sotelo M.D. [phone] Research Coordinator: Jessenia Vasquez RN [phone] [facility] Research Dept: Prediabetes 01/25/2016 01/05/2017 Knee pain, left 07/28/2014 01/05/2017 Foot pain, left 07/28/2014 01/05/2017 Ankle pain, left 07/28/2014 01/05/2017 Acute coronary syndrome 05/30/2018 Overview: h/o angina for years since in 1997; multiple stress tests. Nuclear stress test negative 11/2015. documented as of this encounter (statuses as of 03/13/2019) Immunizations Name Administration Dates Next Due Influenza Vaccine High Dose 01/24/2017, 01/25/2016 MENINGOCOCCAL CONJUGATE VACCINE 04/21/2016 PNEUMOCOCCAL POLYSACCHARIDE VACCINE 05/30/2018 Pneumococcal Conjugate(13 Valent) 01/24/2017 TDAP Vaccine 01/25/2016 documented as of this encounter Social History Tobacco Use Types Packs/Day Years Used Date Never Smoker Smokeless Tobacco: Never Used Alcohol Use Drinks/Week oz/Week Comments No Sex Assigned at Date Recorded Not on file Job Start Date Occupation Industry Not on file Not on file Not on file Travel History Travel Start Travel End No recent travel history available. documented as of this encounter Last Filed Vital Signs Vital Sign Reading Time Taken Comments Blood Pressure 112/64 03/13/2019 12:41 PM EST Pulse 78 03/13/2019 12:41 PM EST Temperature - - Respiratory Rate - - Oxygen Saturation - - Inhaled Oxygen Concentration - - Weight 79.8 kg (176 lb) 03/13/2019 12:41 PM EST Height 156.2 cm (5' 1.5") 03/13/2019 12:41 PM EST Body Mass Index 32.72 03/13/2019 12:41 PM EST documented in this encounter Patient Instructions Patient InstructionsSanjuanita Dow MD - 03/13/2019 12:20 PM EST Please get your influenza shot at your pharmacy, We are out. Please continue current medications. Continue to work on diet. Please recheck non-fasting laboratory tests in 3 months. Lab Results Component Value Date GLYCO 7.1 (H) 03/11/2019 GLYCO 7.3 (H) 12/10/2018 GLYCO 7.1 (H) 09/18/2018 documented in this encounter Progress Notes Sanjuanita Dow MD - 03/13/2019 12:20 PM EST Nursing Notes: Quita Abdalla RN 03/13/2019 12:57 PM Signed Chief Complaint Patient presents with Lab Work Only done 03/11/19, 12/10/18 Diabetes A1c 7.1 on 03/11/19 Peripheral Neuropathy c/o edmond numbess/pain in feet, but L>R Shoulder Pain c/o worsening right shoulder pain, seen Dr Walsh in the past and had injections Sleep Apnea uses CPAP nightly with no issues Buzzsaw Operator: Esteban Bradley MD Orthopedics: Dr Moore Hand specialist: Dr Salazar--had 3 injections family protection specialist: Dr Peterson Analytical Tech: Dr Mcclain SUBJECTIVE: Sowmya Banuelos is an 73-y.o. female who presents for evaluation and treatment of Type 2 diabetesmellitus, hypertension, MARTA. Her ankle edema is resolved on HCTZ. Sometimes her feet feel numb. Diabetes has been diet controlled. She continues to diet and exercise. Family history: negative for diabetes Previous treatment modalities employed include diet. Current treatment includes diet. She had some orthopedics problems so was not exercising. She resumed 2 weeks ago. MARTA: CPAP: She is using it nightly. Overnight oximetry was normal 04/05/17 Pulmonary Function Tests 03/30/17: Mild restrictive dxz due to wt. Sleep study done at [facility] 07/05/17 shows moderate sleep apnea. CPAP titration or auto cpap were recommended. She opts for autocpap. Hypertension: Home BP: 120/60's She saw cardiology and HCTZ was added and BP has been good, even low at times. I had to stop Her amlodipine last visit. CAD on cardiac cath 01/2017: Medication controlled. She has Moderate nonobstructive coronary artery disease. Proximal left anterior descending of 50% and diagonal one of 70%, not hemodynamically significant. Proximal right coronary artery has lesion, 50%. Hx abdominal pain: Per last visits: She often has constipation intremittently. Has intermittent right lower abdominal pain and thinks the fatty tissue is more on that side. She has had several CT scans: No mass, no hernia Diabetes: Current monitoring regimen: none Home blood sugar records: NA Last HgbA1c: Lab Results Component Value Date GLYCO 7.1 (H) 03/11/2019 GLYCO 7.3 (H) 12/10/2018 GLYCO 7.1 (H) 09/18/2018 Last eye exam: 03/11/19 Last microalbumin: 08/2018 Last microfilament foot exam: 08/2018 LDL: Lab Results Component Value Date CHOL 136 09/18/2018 TRIG 157 (H) 09/18/2018 HDL 38 (L) 09/18/2018 LDL 67 09/18/2018 LDLHDLRATIO 1.8 09/18/2018 CHOLHDLRATIO 3.6 09/18/2018 Lab Results Component Value Date NA 139 12/10/2018 K 4.0 12/10/2018 CL 104 12/10/2018 CO2 23 12/10/2018 GLUCOSE 75 12/10/2018 BUN 20 (H) 12/10/2018 CREATININE 0.8 12/10/2018 CALCIUM 9.3 12/10/2018 TP 7.5 12/10/2018 ALBUMIN 4.1 12/10/2018 AST 30 12/10/2018 ALT 20 12/10/2018 ALK 73 12/10/2018 TBILI 0.2 12/10/2018 EGFR >60 12/10/2018 Immunizations: Immunization History Administered Date(s) Administered Influenza Vaccine High Dose 01/25/2016, 01/24/2017 MENINGOCOCCAL CONJUGATE VACCINE 04/21/2016 PNEUMOCOCCAL POLYSACCHARIDE VACCINE 05/30/2018 Pneumococcal Conjugate(13 Valent) 01/24/2017 TDAP Vaccine 01/25/2016 Diabetic complications: CAD Cardiovascular risk factors: diabetes mellitus and obesity Cardiac Studies: Left Heart Cath 01/30/17: SUMMARY: 1. Moderate nonobstructive coronary artery disease. 2. Proximal left anterior descending of 50% and diagonal one of 70%, not hemodynamically significant. 3. Proximal right coronary artery has lesion, 50%. [place] [facility] [place] -Mild-mod LVH with normal LVEF 55-60% and no RWMAs -Mild (MG 9mmHg, LIZET 1.8cm2). -Mild to moderate MR -No pulm HTN Spinal stenosis: LS MRI 11/05/17: IMPRESSION: Multilevel degenerative disease of the lumbar spine. Spinal canal stenosis predominating centrally at L3-4, suggesting possible intrathecal neural impingement. Foraminal stenosis bilaterally. No marked progression of degenerative disease compared to prior CT 08/09/2017. Urgency: Routine. This is a routine medical imaging report. Recommendation: No specific imaging recommendation. MRI LLE 10/22/17: IMPRESSION Impression: MRI of left tibia and fibula without contrast: 1. Negative for evidence of stress fracture or acute fracture of the tibia or fibula. 2. Suggestion of somewhat increased T2 FS signal intensity distal medial head of the gastrocnemius and very distal lateral head of the gastrocnemius which could potentially relate to grade 1 muscle strain without other evidence of strain injury of muscle or tendon of the left lower leg. 3. Findings compatible with transchondral injury likely with degenerative changes involving the talar dome again evident with comparison to left ankle films 10/08/2017 and 07/28/2014. Xray left ankle 10/08/17: Bones: Intact with no displaced fracture or focal osseous destruction. There is a plantar calcaneal spur. Joints: There is progressive joint narrowing of the tibiotalar articulation with subchondral irregularity and lucency in the medial talar dome. The mortise is grossly maintained. Soft tissues: Small tibiotalar effusion. 1. 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 This is progressed slightly since the comparison of 2014. 2. Calcaneal spur. E ultrasound 10/08/17 A sonogram of the left lower extremity deep venous system was performed assessing grayscale appearance, color doppler flow, pulsed doppler waveforms and compressibility. There is a previous study available for comparison. Venous duplex and compressions of the left lower extremity shows no evidence for deep or superficial venous thrombosis, the right common femoral vein and saphenal femoral vein junction appears normal with compression and spectral analysis Echocardiogram 02/07/18: Mild concentric LVH with mild left atrial enlargement. Normal LV systolic function with no regional wall motion abnormalities; estimated LVEF 60-65%. Normal right heart size and RV systolic function. Aortic valve sclerosis without significant stenosis. No hemodynamically significant valvular abnormalities. No pericardial effusion. Compared to [place] [facility] [place], calculated LIZET is higher (1.8cm2 --> 2cm2) and transaortic gradients are unchanged. Degree of mitral regurgitation is less. Current Outpatient Medications: Aspirin 81 MG Oral Tab, Take 81 mg by mouth. Indications: not taking everyday, Disp: , Rfl: Cholecalciferol (VITAMIN D) 2000 units Oral Cap, Take 1 Cap by mouth DAILY., Disp: , Rfl: erythromycin (ILOTYCIN) 5 MG/GM Ophthalmic Ointment, APPLY THIN STRIP TO LEFT UPPER EYELID TWICE A DAY, Disp: , Rfl: fluticasone (FLONASE) 50 MCG/ACT Nasal Suspension, Register 2 Sprays in nose DAILY., Disp: 1 Bottle, Rfl: 5 hydrochlorothiazide (HCTZ, ORETIC) 12.5 MG Oral Tab, Take 1 Tab by mouth DAILY., Disp: 90 Tab, Rfl: 3 lisinopril (PRINIVIL, ZESTRIL) 10 MG Oral Tab, Take 1 Tab by mouth DAILY., Disp: 90 Tab, Rfl: 1 Multiple Vitamins-Minerals (MULTIVITAMIN WOMEN 50+ PO), Take 1 Tab by mouth DAILY., Disp: , Rfl: Naproxen Sodium (ALEVE) 220 MG Oral Cap, Take 1 Tab by mouth DAILY NEEDED (pain)., Disp: , Rfl: Rosuvastatin Calcium (CRESTOR) 40 MG Oral Tab, Take 1 Tab by mouth DAILY., Disp: 90 Tab, Rfl: 3 Allergies Allergen Reactions Penicillins Cardiac Reaction Lactose Other Increased phlegm Past Medical History: Diagnosis Date Acute coronary syndrome (HCC) h/o angina for years since in 1997; multiple stress tests. Nuclear stress test negative 11/2015. Aortic valve stenosis 01/12/2017 Arthritis fongers, has thumb deformities, index fingers, back, knees, ankles Coronary artery disease involving [place] coronary artery with angina pectoris ([facility]) 01/12/2017 Diabetes ([facility]) Essential (primary) hypertension Essential hypertension, benign dx ~ 1997 History of nuclear stress test 11/26/2014 NO evidence of ischemia by stress and nuclear images, normal LV wall motion and EF of 77% MARTA on CPAP normal overnight oximetry 04/05/17 Postmenopausal Spinal stenosis Lumbar, has had injections in the past Past Surgical History: Procedure Laterality Date CATHETERIZATION HEART LEFT Right 01/30/2017 Procedure: CATHETERIZATION HEART LEFT; Surgeon: Andres Murillo MD; Location: [facility] CCL D&C HYSTEROSCOPY for endometrial polys, in [place] LA ORBIT SURGERY PROC UNLISTED bilateral cataract surgery Family History Problem Relation Age of Onset Heart Father Heart Brother Diabetes Brother Heart Brother Heart Brother PR No Known Problems Sister No Known Problems Sister No Known Problems Child No Known Problems Child No Known Problems Child Cancer Other nephew: lymphoma age 14, doing ok now Anesth Problems No family history Arthritis No family history Clotting Disorder No family history Heart Disease No family history Hypertension No family history Kidney Disease No family history Thyroid Disease No family history Social History Tobacco Use Smoking status: Never Smoker Smokeless tobacco: Never Used Substance Use Topics Alcohol use: No Review Of Systems Eyes: negative for vision changes Ears/Nose/Throat: negative for nasal congestion Respiratory: Denies shortness of breath or cough Cardiovascular: negative for chest pain or pressure, no orthopnea Gastrointestinal: negative for bloody or black stool, emesis, diarrhea Genitourinary: negative for dysuria or frequency Neurologic: negative for dizziness, syncope Hematologic/Lymphatic/Immunologic: negative for unexpected weight loss OBJECTIVE: BP 112/64 | Pulse 78 | Ht 5' 1.5" (1.562 m) | Wt 176 lb (79.8 kg) | BMI 32.72 kg/m General appearance: alert, no distress, oriented times 3 Skin: Skin color, texture, turgor normal. No rashes or lesions. Eyes: conjunctivae/corneas clear. PERRL, EOM's grossly intact. Neck: Neck supple. No cervical or supraclavicular adenopathy. Thyroid symmetric , normal size. Carotids 4/4 without bruits. Lungs:. Lungs clear with good aeration. Chest symmetrical. Normal breath sounds bilaterally. Heart: Regular rate and rhythm. No murmurs, clicks or gallops. Abdomen: Abdomen soft, non-tender. BS normal. No masses, organomegaly or hernia. Extremities: Extremities without deformities, skin discoloration. No edema. She is tender above her left ankle lateral malleolus. Peripheral pulses: dorsalis pedis=4/4, Neuro: Gait normal, strength grossly normal and symmetric. After her visit she became dizzy: Improved with OJ. Left foot Diabetic foot exam: Visual exam: normal Sensory: Filament test: present Pulse: a pulse was present Right foot diabetic exam Visual exam: normal Sensory: Filament test: present Pulse: a pulse was present ASSESSMENT/PLAN: ICD-9-CM ICD-10-CM 1. Diabetes mellitus without complication (HCC) 250.00 E11.9 BASIC METABOLIC PANEL GLYCOHEMOGLOBIN A1C 2. Essential hypertension, benign 401.1 I10 3. MARTA (obstructive sleep apnea) 327.23 G47.33 Her diabetes is diet controlled. A1C is still over 7 but a bit improved. Hypertension is well controlled, off the amlodipine. She is tolerating her Crestor well. Continues daily cpap Rx: DELLA? yes Statin? Yes Metformin? No Reviewed concepts of diabetes self-management stressing the primary role of the patient in monitoring and maintaining control of Diabetes. Recommended diet, exercise, and weight loss. Follow up every 3-4 months is recommended, sooner as needed. Patient Instructions Please get your influenza shot at your pharmacy, We are out. Please continue current medications. Continue to work on diet. Please recheck non-fasting laboratory tests in 3 months. Lab Results Component Value Date GLYCO 7.1 (H) 03/11/2019 GLYCO 7.3 (H) 12/10/2018 GLYCO 7.1 (H) 09/18/2018 Author: Sanjuanita Dow MD 03/13/2019 16:06 documented in this encounter Plan of Treatment Date Type Specialty Care Team Description 06/17/2019 Lab Internal Medicine 02/10/2020 Orders Only Cardiology 02/23/2020 Office Visit Cardiology Etseban Bradley MD [address] [place] [address] [phone] Name Type Priority Associated Diagnoses Order Schedule BASIC METABOLIC PANEL Lab Routine Diabetes mellitus without Expected: 06/11 complication (HCC) (Approximate), Expires: 03/13/2020 GLYCOHEMOGLOBIN A1C Lab Routine Diabetes mellitus without Expected: 2019 complication (HCC) (Approximate), Expires: 03/13/2020 Health Maintenance Due Date Last Done Comments MEDICARE ANNUAL WELLNESS 1945 VISIT ZOSTER IMMUNIZATION SERIES 12/10/1993 (1 of 2) MAMMOGRAM (SCREENING) 03/14/2019 03/14/2018, 02/12/2017, 09/16/2015, Additional history exists HEMOGLOBIN A1C 06/10/2019 03/11/2019, 12/10/2018, 09/18/2018, Additional history exists DEPRESSION SCREENING 09/19/2019 09/18/2018 FOOT EXAM 09/19/2019 09/18/2018, 09/18/2018, 09/18/2018, Additional history exists LIPID DISORDER SCREENING 09/19/2019 09/18/2018, 09/18/2018, 11/08/2017, Additional history exists Diabetic Eye Exam 10/25/2019 10/24/2017 FALL RISK ASSESSMENT 2019 12/10/2018, 12/10/2018 Colonoscopy 02/24/2025 02/24/2015 DTaP/Tdap/Td Vaccines (2 - 01/24/2026 01/25/2016 Tdap) MENINGOCOCCAL VACCINE IMM Aged Out 04/21/2016 No longer eligible based on patient's age to complete this topic PNEUMOCOCCAL 65+YRS Completed 05/30/2018, 01/24/2017 HEPATITIS A IMMUNIZATION Aged Out No longer eligible SERIES based on patient's age to complete this topic HPV IMMUNIZATION SERIES Aged Out No longer eligible based on patient's age to complete this topic documented as of this encounter Goals Goal Patient Goal Associated Recent Patient-Stated? Author Type Problems Progress Blood Pressure Blood 112/64 No Victor M, < 150/90 Pressure (03/13/2019 Sanjuanita Minor, 12:41 PM EST) Note: This is an individualized treatment (blood pressure) goal for Sowmya Banuelos: Displayed above (on the left) is your goal for blood pressure control. Your most recent blood pressure is also shown above, on the right. You should try to achieve blood pressures that are lower than your goal listed above (on the left). Glycohemoglobin A1c < 7.0 Diabetes 7.1 (03/11/2019 2:21 No Sanjuanita Dow PM ESTSudarshan Minor MD Note: This is an individualized treatment (diabetes control, HgbA1C) goal for Sowmya Banuelos: Displayed above is your progress towards your HgbA1C goal. Your goal is shown above (on the left); your most recent HgbA1C is shown on the right. Note that lower numbers are better. Weight loss vs. 18 Lifestyle 7 (03/13/2019 12:41 PM No Sanjuanita Dow mo max (lbs) >= 10 EST) Note: This is an individualized lifestyle goal for Sowmya Banuelos: Your body mass index (BMI) is more than 30. You should lose weight. A reasonable starting goal is to lose 10 pounds. Displayed above is how many pounds you have lost thus far towards your 10 pound weight loss goal. Keep immunizations current Lifestyle No Sanjuanita Dwo MD Note: This is an individualized lifestyle goal for Sowmya Banuelos: Please be sure to keep up-to-date on recommended immunizations. For example, this would include a yearly influenza vaccine. Immunization status can be seen by looking at the Health Maintenance sections of your [employer], Plan of Care, and any After Visit Summaries. Take all prescribed medications as Self-management No Sanjuanita Dow MD directed Note: This is an individualized self-management goal for Sowmya Banuelos: Please take all prescribed medications as directed. 1. Do not skip doses. If you cannot afford your medications, talk with your doctor. 2. Use a pill reminder system such as a pill box if needed. Your pharmacist can help you with this. 3. Contact your Pharmacy 5 days before your medication runs out. If you cannot take your medications for any reasons, talk with your doctor. 4. Please bring all of your medication bottles and inhalers (or a list of all your medications/inhalers) with you to every visit. Potential barriers to meeting all of your care plan goals will continue to be addressed on an ongoing basis. documented as of this encounter Results Not on filedocumented in this encounter Visit Diagnoses Diagnosis Diabetes mellitus without complication (HCC) Type II or unspecified type diabetes mellitus without mention of complication, not stated as uncontrolled Essential hypertension, benign MARTA (obstructive sleep apnea) Obstructive sleep apnea (adult) (pediatric) documented in this encounter Insurance Payer Benefit Plan / Subscriber ID Effective Dates Phone Address Type Group MEDICARE MEDICARE PART A xxxxxxxxxxx 2008-Present Medicare & B [facility] [employer] xxxxxxxxxxx 2016-Present [facility] [employer] Guarantor Name Account Type Relation to Date of Phone Billing Patient Address Sowmya Banuelos Personal/Family 1945 [address] (Home) [address] [phone] [place], [place] (Work) [id number] documented as of this encounter
--- OUTSIDE RECORDS SUMMARY | 2019-04-22 08:53 | XMS REPORT | Continuity of Care Document ---
:1945 External Reference #:[id number] Author Name Deidre Hutchinson O.D. Address [address] [place] [address] Care Team Providers Name Role Phone Sanjuanita Dow M.D. - Family Care Team Information Emergency Manager Medicine Esteban Bradley M.D. - Care Team Information Emergency Manager [phone] Cardiovascular Disease Problems Active Problems Provider Date [...] diabetes mellitus Deidre Hutchinson O.D. Onset: 10/27/2017 Social History Type Date Description Comments Sex Unknown ETOH Use Denies alcohol use Tobacco Use Start: Unknown Patient has never smoked Recreational Drug Use Denies Drug Use Smoking Status Reviewed: 03/04/19 Patient has never smoked Allergies, Adverse Reactions, Alerts Active Allergies Reaction Severity Comments Date Lactose (Allergy) 07/22/2014 Penicillins 07/22/2014 Medications Active Medications SIG Qnty Indications Ordering Date Provider Erythromycin apply thin 1Tubes H00.024 Deidre Hutchinson, [...] Medical Devices Description No Information Available Encounters Description No Information Available Assessments Date Code Description Provider 03/04/2019 H00.024 Hordeolum internum left upper eyelid Deidre Hutchinson O.D. Plan of Treatment 03/04/2019 - Deidre Hutchinson O.D.H00.024 Hordeolum internum left upper eyelidNew Medication:Erythromycin 5 mg/GM - apply thin strip to left upper eyelid twice a dayComments:Smoking can increase the risk of developing or worsening any eye related disease, as well as affect your overall health. If you are a smoker, we strongly recommend that you quit.If you are not a smoker, we strongly recommend that you do not start. 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 This is when the Meibomian Glands do not function correctly and periodically get blocked up. This is a chronic condition that requires at home treatment. Use a hot compress for 10-15 minutes at a time onceor twice per day. There are a few ways you can do this:1) You can wet down a washcloth with hot water. You may have to re-wet the washcloth or twice during the 15 minute period. 2) You can put uncooked white rice into a clean pair of socks, and without wetting the sock or the rice, heat it up in the microwave for 30 seconds. The white rice will release a moist heat and will remain warm for roughly 15 minutes. It is recommended that you replace the rice every month and clean the socks.After using the hot compress, massage along the lash line to help the oils in the glands move freely, proving an oil layer for your tear film, to keep your tears from evaporating. It is also recommended that you use artifical tears throughout the day, even when your eyes do not feel dry. We recommend that you use them 3-4 times a day to prevent your ocular surface from becoming irritated. When you start toexperience symptoms of dryness or irritation, it is often too late for the tears to help until you've let your eyes heal overnight.Dr. Hutchinson may prescribe an antibiotic ointment to help you when you have a Meibomitis flare up, but you can also use Refresh PM ointment each night before bed to help keep your ocular surface comfortable. AFTER WARM COMPRESSES , APPLY ERYTHROMYCIN OINTMENT If you have any questions about your condition and the treatment, feel free to call our office at .Follow up:1 WEEK OR SOONER NEEDED Functional Status Description No Information Available Mental Status Description No Information Available Referrals Description No Information Available
[2019-04-22] MEDS ORDERED: Meclizine TAB* 12.5 MG PO ONE (11:42)
[2019-04-22 14:53] VITALS: BP 124/87
== END 2019-04-22 15:05 | disposition home or self-care (01) ==
LOC: ED 07:17
DX: R42 Dizziness and giddiness (principal); R10.31 Right lower quadrant pain; K44.9 Diaphragmatic hernia without obstruction or gangrene; E78.00 Pure hypercholesterolemia, unspecified; I10 Essential (primary) hypertension; Z98.51 Tubal ligation status; Z79.82 Long term (current) use of aspirin; Z88.0 Allergy status to penicillin
CPT/HCPCS: 36415; 70450; 71045; 74177; 80053; 83605; 84484; 85025; 93005; 96360; 96361; 99283; A9270-GY; Q9967